=== PATIENT | female | born 1985 | race Caucasian/White ===

== ENCOUNTER 2018-08-03 21:18 | Inpatient (IN) | payer SELFPAY ==
[~2018-08-03 21:18] MED LIST: Lidocaine 1% PF 5 ML VIAL ONE; Ondansetron PF 4 MG/2 ML Vial ONE; PROPOFOL 200 MG/20 ML VIAL ONE; Rocuronium Bromide 10 MG/ML (10ML VIAL) ONE; Succinylcholine Chloride 20 MG/ML 10 ml SYRINGE FS ONE; ePHEDrine 50 MG/ML VIAL ONE
[2018-08-03] MEDS ORDERED: Acetaminophen 325 MG TAB ONE (21:37)
[2018-08-03] MEDS ORDERED: Clindamycin/D5W 600 mg/50 ml Premix Bag ONE (22:02)
[2018-08-03] MEDS ORDERED: Morphine 4 MG/ML VIAL ONE (22:02)
[2018-08-03] MEDS ORDERED: metroNIDAZOLE 500 MG/100 ML BAG ONE (22:08)
[2018-08-03] MEDS ORDERED: Ampicillin/Sulbactam 3 GM in Sodium Chloride 0.9% 100 ML IVPB SCH ×2 (22:15→22:30)
[2018-08-03] MEDS ORDERED: Fentanyl 100 MCG/2 ML VIAL ONE (22:38)
[2018-08-03] MEDS ORDERED: IBUPROFEN IVPB SCH (22:45)
[2018-08-03] MEDS ORDERED: SODIUM CHLORIDE 0.9% IVPB SCH (22:45)
[2018-08-03] MEDS ORDERED: Bupivacaine HCl 0.5%/Epinephrine 1:200,000/PF 30 ml Vial ONE (22:49)
--- NOTE | 2018-08-03 23:12 | HP ---
TIME OF ADMISSION: 2200 hours. REASON FOR ADMISSION: Right vulvar abscess with poorly controlled diabetes. HISTORY OF PRESENT ILLNESS: Ms. Lira is a 33-year-old, G0 (presumed), who first presented to the [place] [facility] on 08/01, complaining of pain on the right vulva. She was seen and felt to have cellulitis without michael abscess and discharged home on Bactrim DS. The patient re-presented today complaining of some spontaneous drainage, increasing erythema and increasing pain. She denies . No test was performed at this time. 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 The patient denies STD history. MEDICAL HISTORY: Positive for diabetes, poorly controlled. The patient reports that she has been put on metformin in the past, however, she lost insurance and was not filling the prescription because it was 30 dollars. She also has morbid obesity. SURGICAL HISTORY: Tonsils. ALLERGIES: DENIES. MEDICATIONS: None. SOCIAL HISTORY: Former drug user, using marijuana in the past. Smokes one pack per week of cigarettes. Denies alcohol use or IV drug abuse. FAMILY HISTORY: Positive for diabetes. REVIEW OF SYSTEMS: Please see the history of present illness. Otherwise, complete review of systems is noncontributory. PHYSICAL EXAMINATION: GENERAL: White female. VITAL SIGNS: Blood pressure 118/70, pulse 98, respirations 18, temperature 101.5. HEENT: Within normal limits. LUNGS: Clear to auscultation bilaterally. HEART: Regular rate and rhythm. ABDOMEN: Soft and nontender without rebound or guarding. VULVA: The patient has somewhat spontaneously draining boil on the right labia majora. She has surrounding erythema and induration with plus-minus fluctuance throughout, is very tender on exam and extends down onto her right thigh and buttock. No foul smell is noted. No crepitus is noted. Rest of pelvic exam is deferred. LABORATORY DATA: White count of 16.4, 83% neutrophils, hematocrit of 42%, normal platelets. Sodium of 130, blood sugar of 368, creatinine of 0.8, potassium of 4.1. Urinalysis in [place] revealed 4+ glucose, 4+ ketones, trace protein, otherwise unremarkable. IMPRESSION: Right vulvar abscess with associated cellulitis. Cannot rule out necrotizing fasciitis without exploration. PLAN: Admission with Unasyn, vancomycin, and Flagyl IV. N.p.o. To OR for I and D. Consult Internal Medicine hospitalist for management of diabetes. Job ID: [id number]
[2018-08-03 23:30] LABS: BHCG - Serum Negative (NEGATIVE); Pregs Control Background? CLEAR/WHITE (CLR/WHITE); Pregs Control Bar Appear? YES (CONTROL BAR)
[2018-08-04] MEDS ORDERED: fentaNYL Citrate/PF 2,000 MCG in Sodium Chloride 0.9% 60 ML IV PRN (00:41)
[2018-08-04] MEDS ORDERED: Ondansetron HCl/PF 4 MG/2 ML Vial IVP PRN (00:41)
[2018-08-04] MEDS ORDERED: diphenhydrAMINE 25 MG CAP PO PRN ×2 (00:41→12:39)
[2018-08-04] MEDS ORDERED: Promethazine HCl 25 MG/ML VIAL IM PRN ×3 (00:41→12:39)
[2018-08-04] MEDS ORDERED: diphenhydrAMINE 50 MG/ML VIAL IVP PRN (00:41)
[2018-08-04] MEDS ORDERED: Naloxone HCl 0.4 mg/ml Vial IV PRN (00:41)
[2018-08-04] MEDS ORDERED: Ondansetron PF 4 MG/2 ML Vial IVP PRN (00:41)
[2018-08-04] MEDS ORDERED: Promethazine HCl 25 MG/ML VIAL SLOW IVP PRN (00:41)
[2018-08-04] MEDS ORDERED: diphenhydrAMINE 50 MG/ML VIAL IM PRN (00:41)
[2018-08-04] MEDS ORDERED: Zolpidem Tartrate 5 MG TAB PO PRN ×2 (00:41→12:39)
[2018-08-04] MEDS ORDERED: Communication Order-Pharmacy FS SCH (00:45)
[2018-08-04] MEDS ORDERED: Fentanyl 100 MCG/2 ML VIAL ONE (01:05)
[2018-08-04] MEDS ORDERED: HYDROcodone/Acetaminophen 7.5/325 mg Tablet PO PRN ×2 (02:03)
[2018-08-04] MEDS ORDERED: Dextrose 5% in Water 1,000 ML IV PRN (02:03)
[2018-08-04] MEDS ORDERED: Dextrose 50% Abboject 50 ML SYRINGE SLOW IVP PRN ×2 (02:03→02:56)
[2018-08-04] MEDS ORDERED: Bisacodyl 5 MG TAB PO PRN (02:03)
[2018-08-04] MEDS: Sodium Chloride 0.9% 1,000 ML IV SCH ×3 (02:45→19:28)
[2018-08-04 02:55] VITALS: BMI 38.1
[2018-08-04] MEDS: Vancomycin HCl 1.75 GM in Sodium Chloride 0.9% 500 ML IVPB SCH ×3 (03:35→21:46)
[2018-08-04 05:32] LABS: ALT (SGPT) 21 U/L (8-55); AST (SGOT) 14 U/L (5-34); Albumin 3.1 g/dL (3.5-5.0); Alkaline Phosphatase 52 U/L (40-150); Anion Gap 14 mmol/L (10-20); BUN (Urea Nitrogen) 11 mg/dL (7.0-18.7); Bilirubin, Total 1.1 mg/dL (0.2-1.2); Calc. Creatinine Clearance 238 mL/min (70-130); Calcium 7.8 mg/dL (7.8-10.44); Carbon Dioxide 19 mmol/L (22-29); Chloride 103 mmol/L (98-107); Estimated GFR-MDRD Greater than 90; Globulin 2.7 g/dL (2.4-3.5); Glucose 297 mg/dL (70-105); Potassium 3.5 mmol/L (3.5-5.1); Protein, Total 5.8 g/dL (6.0-8.3); Sodium 132 mmol/L (136-145)
[2018-08-04] MEDS: Ampicillin/Sulbactam 3 GM in Sodium Chloride 0.9% 100 ML IVPB SCH ×2 (06:04→13:21)
[2018-08-04] MEDS: HumaLOG 300 UNITS/3 ML VIAL SC PRN ×3 (06:15→18:53)
[2018-08-04] MEDS: metroNIDAZOLE 500 MG in Premix Bag 1 BAG IVPB SCH ×2 (06:43→15:30)
--- NOTE | 2018-08-04 07:31 | PRG ---
DATE OF SERVICE: 08/04/2018 TIME OF SERVICE: 0715. SUBJECTIVE: The patient is resting comfortably. She states her pain is significantly improved this morning. She is on a HOSPICE MASSAGE THERAPIST. OBJECTIVE: VITAL SIGNS: Temperature 98.0, pulse 88, respirations 16, blood pressure 103/68. HEENT: Within normal limits. LUNGS: Clear to auscultation bilaterally. HEART: Regular rate and rhythm. ABDOMEN: Soft and nontender. : Exam reveals perhaps slightly increased erythema beyond borders that were marked in the emergency room, but decreased fluctuation, and dry bandage with packing that was placed at approximately [address] No foul odor is noted. LABORATORY DATA: All cultures are pending. Basic met this morning reveals a sodium slightly up to 132, potassium at 3.5, and [id number] glucose of 276. [facility] Internal Medicine is following the patient for management of diabetes. IMPRESSION: Right vulvar abscess and a poorly controlled diabetic. On Unasyn, Flagyl, and vancomycin with wound care consult placed. PLAN: Follow up cultures. Continue follow clinical course. Continue antibiotics. Anticipate possible return to the OR for reexploration at 18 to 36 hours post initial I and D and debridement. Anticipate placement of wound VAC. Anticipate a wound care consultation. Job ID: [id number]
--- NOTE | 2018-08-04 07:36 | OP ---
DATE OF PROCEDURE: 08/04/2018 DATE OF OPERATION: 08/03/2018 to 08/04/2018 PREOPERATIVE DIAGNOSIS: Vulvar abscess, right vulva. POSTOPERATIVE DIAGNOSIS: Vulvar abscess with early necrotizing fasciitis of right vulva and thigh. PROCEDURES PERFORMED: Incision and drainage, excision, and extensive debridement of 8 x 8 x 6 cm abscess and necrotizing fasciitis of the deep subcu, skin, and muscle surface of the right thigh. ANESTHESIA: General endotracheal. ESTIMATED BLOOD LOSS: Approximately 100 mL intraoperatively. DRAINS: Cain to gravity. OPERATIVE FINDINGS: 1. Dark, malodorous purulent material encountered upon incision. 2. Necrotizing adipose tissue in the subcu and dermis region of the right thigh and vulva. 3. Small amount of necrotizing tissue on the surface of the groin muscles in the right thigh, removed. 4. Friable tissue throughout post debridement and Pulsavac irrigation. 5. Packed with one large Kerlix sponge. DISPOSITION: Floor on triple antibiotics with Wound Care consult and Internal Medicine consult for diabetes management. DESCRIPTION OF PROCEDURE: After obtaining appropriate informed consent, the patient was taken to the operating room, where general endotracheal anesthesia was achieved without difficulty. She was prepped and draped in usual manner. Cain catheter was placed. Area of the obvious pointing of the induration from suspected abscess was noted and approximately 4 cm skin incision was made. Immediately upon entry, dark purulent malodorous material was expressed, this was cultured for aerobe and anaerobe. The wound was washed out and became obvious that the extension of the incision would be needed. The incision was extended in approximately 1 cm intervals and totally at the end of the procedure, the aspects of the excised tissue was 8 x 8 x 6 cm. At the level of the skin and dermis, areas of necrosis were identified and excised, this was carried throughout and was also noted to be at the level of the surface of the muscle of the thigh. No involvement of great vessels was noted. Over approximately 45-50 minute period, the extensive debridement was carried out with meticulous care taken to make sure that all necrotic tissue was removed. Wound VAC irrigation was carried out and reinspection revealed good removal of all tissue. All areas and margins of the incision, drainage and excision area were probed and not noted to have any crepitus, loss of tissue resistance, and malodorous nature of the wound was absent. A moistened Kerlix sponge was packed in its entirety into the defect and an ABD pad applied. The patient was taken to recovery room. She will receive a CORE STACKER of Wound Care consult in the morning. We will continue Unasyn, Flagyl, and vancomycin. May consider re-exploration and inspection by OB hospitalist in 18-36 hours. We will leave Cain in place. We will obtain CORE STACKER for the patient. Job ID: [id number]
[2018-08-04 09:10] LABS: Pregnancy Test - Urine (BHCG) Negative (Negative); Pregu Control Background? CLEAR/WHITE (CLR/WHITE); Pregu Control Bar Appear? YES (CONTROL BAR); Specific Gravity 1.039 (1.002-1.036)
--- NOTE | 2018-08-04 09:43 | CON ---
DATE OF CONSULTATION: PRIMARY CARE PROVIDER: None, the patient used to see Dr. Baxter in the past, but has not seen her in several years. CHIEF COMPLAINT: Diabetes mellitus. HISTORY OF PRESENT ILLNESS: Ms. Lira is a pleasant 33-year-old lady, who was seen at [facility] for management of medical comorbidities including diabetes mellitus. She underwent incision and drainage, excision and extensive debridement of 8 x 8 x 6 cm abscess and necrotizing fasciitis of the deep subcutaneous, skin and muscle surface of the right thigh. She reports that she was diagnosed with diabetes mellitus several years ago. She was on metformin, but stopped taking it. She denies any chest pain or shortness of breath. She denies any fevers or chills. She denies any nausea or vomiting. She denies any diarrhea. She denies any abdominal pain. REVIEW OF SYSTEMS: All other systems were reviewed and found to be negative. PAST MEDICAL HISTORY: Diabetes mellitus type 2. PAST SURGICAL HISTORY: Tonsil surgery. ALLERGIES: NO KNOWN DRUG ALLERGIES. HOME MEDICATIONS: None. SOCIAL HISTORY: The patient used marijuana in the past. She smokes one pack of cigarettes every week. She denies alcohol use or recreational drug use. FAMILY HISTORY: Father with congestive heart failure and renal failure. PHYSICAL EXAMINATION: GENERAL: On examination, Ms. Lira is awake and alert, not in acute distress. She is obese, with a BMI of 38.2. VITAL SIGNS: Blood pressure is 116/73, pulse 80, respiratory rate 16, and oxygen saturation 100% on room air. She is afebrile. EYES: No scleral icterus, no conjunctival pallor. ENT: Moist mucosal membranes. No oropharyngeal erythema or exudates. NECK: Supple, nontender, trachea is midline. RESPIRATORY: Accessory muscles of breathing are not active. Chest wall movements are symmetric bilaterally. LUNGS: Clear to auscultation, without wheeze, rhonchi, or crepitations. CARDIOVASCULAR: S1 and S2 are heard, regular. Peripheral pulses palpable. No carotid bruit. No pericardial rub. ABDOMEN: Soft, nontender, bowel sounds heard. NEUROLOGIC: Cranial nerves 2 through 12 are intact. MUSCULOSKELETAL: Power is 5/5 in all 4 extremities. SKIN: Dressing over the surgical site, no rashes or subcutaneous nodules. LYMPHATIC: No cervical lymphadenopathy. PSYCHIATRIC: Normal mood, normal affect. The patient is oriented to person, place, and time. LABORATORY DATA: Ms. Lira's labs and investigations were reviewed. She has mild hyponatremia with a sodium of 132, normal potassium, normal creatinine, unremarkable liver profile, normal calcium, elevated hemoglobin A1c of 11, and negative serum test. ASSESSMENT AND PLAN: Ms. Lira is a pleasant 33-year-old lady, who was seen at [facility] on August 04, 2018. Her problem list includes: 1. Hyponatremia: Mild, likely asymptomatic, we will recheck sodium level tomorrow. 2. Diabetes mellitus type 2: Poorly controlled in the context of medication noncompliance. The patient will be started on insulin sliding scale for now. We will see how her sugars do and make further recommendations. 3. Hypoalbuminemia: Her albumin is low at 3.1. Recommend dietitian consult both for hypoalbuminemia and for diabetes diet teaching. Many thanks for allowing me to participate in your patient's care. Please feel free to contact me with any questions or concerns. LEVEL OF RISK: Moderate. LEVEL OF COMPLEXITY: Moderate. Job ID: [id number]
[2018-08-04] MEDS: Famotidine 20 MG TAB PO SCH ×2 (09:50→21:46)
[2018-08-04] MEDS: Nicotine 14 MG PATCH TD SCH (09:50)
[2018-08-04] MEDS ORDERED: Acetaminophen 325 MG TAB PO PRN (12:45)
[2018-08-04] MEDS ORDERED: Morphine 4 MG/ML VIAL SLOW IVP SCH (12:45)
[2018-08-04] MEDS: diphenhydrAMINE 50 MG/ML VIAL IM/IV PRN ×2 (15:32→23:59)
[2018-08-04] MEDS: Ketorolac Tromethamine 30 MG/ML VIAL IVP SCH ×2 (15:34→21:47)
--- NOTE | 2018-08-04 19:20 | CON ---
DATE OF CONSULTATION: 08/04/2018 REASON FOR CONSULTATION: Necrotizing perineal infections. HISTORY OF PRESENT ILLNESS: A 33-year-old with poorly controlled type 2 diabetes and obesity, who a few months ago had an abscess in the perineal region, which was drained in the emergency room in [place] and then a few days ago, she noticed inflammatory process in the right perivulvar region, which she tried to managed with a sitz bath without improvement. Eventually was seen in the emergency room and given Bactrim without improvement again and then she was admitted. Had a surgical debridement on August 04. The operative report was reviewed and after endotracheal anesthesia was achieved, Cain catheter was placed and then the area of induration was identified and a 4 cm incision made. Dark, purulent, malodorous material expressed. Culture submitted. There was evidence of extension of the process and the incision was extended approximately 1 cm area of necrosis was identified, extended to the muscle of the thigh. Extensive debridement carried out. She is going for revision of the wound today under anesthesia. She is still having severe pain in the area. No headaches, visual symptoms, sore throat, odynophagia, or dysphagia. No cough or sputum production. No chest pain. No dyspnea. No abdominal pain. She has a Cain catheter in place. No neurological symptoms. PAST MEDICAL HISTORY: Type 2 diabetes and obesity, abscess in perineal area a few months ago. PAST SURGICAL HISTORY: Tonsil removal. ALLERGIES: NONE. SOCIAL HISTORY: Current smoker. No alcoholic beverage use. FAMILY HISTORY: Type 2 diabetes. CURRENT MEDICATIONS: 1. Tylenol. 2. Unasyn. 3. Fentanyl. 4. Glucagon. 5. Flagyl. 6. Vancomycin. PHYSICAL EXAMINATION: VITAL SIGNS: T-max 98.6, blood pressure 129/86, pulse 83, respirations 14 to 20, and O2 saturation 99. SKIN: Remarkable for the right-sided perineal groin wound with healthy-appearing shepherd quite deep into the right groin. No erythema noted, but she has marked tenderness in the medial aspect of the right thigh. Peripheral IV access. No lymphadenopathy. HEENT: Ocular movements conjugate. Oral cavity normal. NECK: Supple. LUNGS: Symmetric clear breath sounds. HEART: S1 and S2. Regular rate. No S3 or S4. ABDOMEN: Soft, not distended or tender. No ascites. No bladder distention. EXTREMITIES: Able to move extremities with limitation imposed by inflammatory process right groin. NEUROLOGIC: Cognitive function appears to be intact. LABORATORY DATA: Sodium 132 and creatinine 0.61. Normal liver profile. Albumin 3.1. Urinalysis was not particularly remarkable. The last white cell count 16.4, hemoglobin 14, platelets 148, and 83% neutrophils. Microbiology with polymicrobial emily and Gram stain cultures are pending. No imaging studies to review. ASSESSMENT: Type 2 diabetes with necrotizing infection of right groin status post surgical debridement, which appears to have been adequate, going for revision today. DISCUSSION: Those processes are sometimes monobacterial, sometimes polymicrobial. In her case, she has a mixed aerobic and anaerobic infection and the usual pathogens include Bacteroides, fusobacterium, Enterobacteriaceae, possibility of streptococci and sometimes Staphylococcus aureus/methicillin-resistant Staphylococcus aureus. Switch her to Rocephin, which has broader coverage for gram- negative rods than Unasyn. Continue Flagyl and vancomycin. Await on the final identification of the organisms. Once there is proper debridements verified by the today's revision, then she probably will be a candidate for negative pressure dressing and eventual transition to oral antimicrobial therapy. Job ID: [id number]
[2018-08-04] MEDS: cefTRIAXone\\ROCEPHIN 1 GM in Sodium Chloride 0.9% 100 ML IVPB SCH (19:28)
[2018-08-04] MEDS: fentaNYL Citrate/PF 2,000 MCG in Sodium Chloride 0.9% 60 ML IV PRN (21:46)
[2018-08-05] MEDS: metroNIDAZOLE 500 MG in Premix Bag 1 BAG IVPB SCH ×4 (00:03→21:32)
[2018-08-05] MEDS: Ketorolac Tromethamine 30 MG/ML VIAL IVP SCH ×3 (05:53→21:31)
[2018-08-05] MEDS: Sodium Chloride 0.9% 1,000 ML IV SCH ×3 (05:53→19:27)
[2018-08-05] MEDS: HumaLOG 300 UNITS/3 ML VIAL SC PRN ×3 (05:54→21:32)
[2018-08-05] MEDS: Ondansetron PF 4 MG/2 ML Vial IVP PRN ×2 (06:06→15:03)
[2018-08-05 06:49] LABS: #Eosinphils 0.1 thou/uL (0.0-0.7); #Lymphocytes 0.9 thou/uL (1.20-3.40); #Monocytes 0.5 thou/uL (0.11-0.59); #Neutrophils 5.6 thou/uL (1.40-6.50); %Basophils 0.3 % (0.0-1.0); %Eosinophils 1.4 % (0.0-10.0); %Lymphocytes 12.8 % (21.0-51.0); %Monocytes 7.4 % (0.0-10.0); %Neutrophils 78.1 % (42.0-75.0); Hemoglobin 12.3 g/dL (12.0-16.0); Mean Corpuscular Hemoglobin 31.2 pg (27.0-31.0); Mean Corpuscular Volume 91.8 fL (78.0-98.0); Mean Platelet Volume 7.7 fL (7.4-10.4); Platelet Count 130 thou/uL (130-400); RBC Distribution Width 10.9 % (11.5-14.5); Red Blood Cell (RBC) Count 3.95 mill/uL (4.20-5.40); White Blood Cell (WBC) Count 7.1 thou/uL (4.8-10.8)
--- NOTE | 2018-08-05 07:02 | PDOC.EVN ---
Event Note - Event Note Event Note: POD1, HD #3 S: Nauseous this am, very thirsty, pain ok with fentanyl MANAGER INVESTMENT O: VSSAF NAD RRR CTAB S/nt/obese Ext: Right thigh with exquisitely tender erythema extending below the level of the demarkated line (this line was drawn upon admission in ER) Gen: Right labial wound with packing in place. Labs: pending A) 33yo with Necrotizing infection of right vulva/thigh and uncontrolled T2DM s/ p wound debridement on 08/04 P)NPO for OR today for repeat debridement and wound vac placement, consent signed s/p ID consult- polymicrobial, on rocephin, flagyl and vancomycin, cultures pending T2DM- f/b sound on mild SSI, will need improved control and titration of daily meds once eating Pain- cont fentanyl and toradol until postop Plan of care discussed with pt and all questions answered.
[2018-08-05 07:05] LABS: Anion Gap 12 mmol/L (10-20); BUN (Urea Nitrogen) 7 mg/dL (7.0-18.7); Calc. Creatinine Clearance 255 mL/min (70-130); Calcium 8.1 mg/dL (7.8-10.44); Carbon Dioxide 22 mmol/L (22-29); Chloride 104 mmol/L (98-107); Estimated GFR-MDRD Greater than 90; Glucose 254 mg/dL (70-105); Potassium 3.6 mmol/L (3.5-5.1); Sodium 134 mmol/L (136-145)
[2018-08-05] MEDS: cefTRIAXone\\ROCEPHIN 1 GM in Sodium Chloride 0.9% 100 ML IVPB SCH (07:26)
[2018-08-05] MEDS ORDERED: Ketorolac Tromethamine 30 MG/ML VIAL ONE (07:50)
[2018-08-05] MEDS ORDERED: Midazolam HCl 2 mg/2 ml Vial ONE (07:51)
[2018-08-05] MEDS ORDERED: Promethazine HCl 25 MG/ML VIAL ONE (08:06)
[2018-08-05] MEDS ORDERED: Fentanyl 100 MCG/2 ML VIAL ONE (08:06)
[2018-08-05] MEDS ORDERED: HYDROmorphone 2 MG/ML VIAL ONE (08:06)
[2018-08-05] MEDS: Famotidine 20 MG TAB PO SCH ×2 (09:00→21:32)
[2018-08-05] MEDS ORDERED: Ondansetron HCl/PF 4 MG/2 ML Vial IVP PRN (10:09)
[2018-08-05] MEDS ORDERED: Promethazine HCl 25 MG/ML VIAL IM PRN (10:09)
[2018-08-05] MEDS ORDERED: PACU-Morphine 4MG/ML VIAL SLOW IVP PRN (10:09)
[2018-08-05] MEDS ORDERED: HYDROmorphone 2 MG/ML VIAL SLOW IVP PRN (10:09)
[2018-08-05] MEDS ORDERED: Promethazine HCl 25 MG/ML VIAL SLOW IVP PRN (10:09)
[2018-08-05] MEDS: Vancomycin HCl 1.75 GM in Sodium Chloride 0.9% 500 ML IVPB SCH ×2 (11:01→21:30)
[2018-08-05] MEDS: Insulin Glargine 10 UNITS in Pre-Filled Syringe 1 EACH SC SCH ×2 (11:17→21:31)
[2018-08-05] MEDS: Nicotine 14 MG PATCH TD SCH (11:17)
[2018-08-05] MEDS: fentaNYL Citrate/PF 2,000 MCG in Sodium Chloride 0.9% 60 ML IV PRN (11:33)
--- NOTE | 2018-08-05 13:24 | PDOC.PN ---
- Subjective Encounter Start Date: 08/05/18 Encounter Start Time: 12:00 Subjective: just had debridement per staff, is a bit drowsy -: awakens easily, no pain - Objective MAR Reviewed: Yes Vital Signs & Weight: Vital Signs (12 hours) Temp Pulse Resp BP Pulse Ox 08/05/18 12:42 76 99/57 L 97 08/05/18 12:11 81 107/52 L 96 08/05/18 11:40 72 18 105/71 97 08/05/18 11:04 78 114/75 96 08/05/18 10:45 98.1 F 80 16 104/70 92 L 08/05/18 04:00 98.8 F 84 16 102/68 98 Weight Admit Weight 251 lb Weight 251 lb I&O: 08/04/18 08/05/18 08/06/18 06:59 06:59 06:59 Intake Total 1080 1980 Output Total 1999 1650 1100 Balance -920 -1650 880 Result Diagrams: 08/05/18 06:17 08/05/18 06:17 Additional Labs: Accuchecks 08/05/18 08/05/18 08/04/18 11:15 05:54 23:36 POC Glucose 236 H 232 H 223 H 08/04/18 15:20 POC Glucose 220 H Phys Exam - Physical Examination HEENT: PERRLA, sclera anicteric Neck: no JVD, supple Respiratory: no wheezing, no rales Cardiovascular: RRR, no significant murmur Gastrointestinal: soft, no distention, positive bowel sounds has wound vac to right groin ulcer Musculoskeletal: no edema, pulses present Neurological: non-focal, moves all 4 limbs Dx/Plan (1) Necrotizing fasciitis Code(s): M72.6 - NECROTIZING FASCIITIS Status: Acute Comment: of right groin , s/p debridement x2 (2) DM type 2 (diabetes mellitus, type 2) Status: Chronic 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 Review of Systems - Medications/Allergies Allergies/Adverse Reactions: Allergies Allergy/AdvReac Type Severity Reaction Status Date / Time No Known Drug Allergies Allergy Verified 08/04/18 02:50 Medications: Current Medications Acetaminophen (Tylenol) 650 mg PO Q6H PRN PRN Reason: Headache/Fever or Pain Stop: 08/07/18 12:46 Bisacodyl (Dulcolax) 10 mg PO DAILYPRN PRN PRN Reason: Constipation Dextrose/Water (Dextrose 50%) 25 gm SLOW IVP PRN PRN PRN Reason: Hypoglycemia Diphenhydramine HCl (Benadryl) 25 mg IM/IV Q3H PRN PRN Reason: Itching Last Admin: 08/04/18 23:59 Dose: 25 mg Diphenhydramine HCl (Benadryl) 25 mg PO Q3H PRN PRN Reason: Itching Famotidine (Pepcid) 20 mg PO BID [facility] Last Admin: 08/05/18 09:00 Dose: Not Given Glucagon (Glucagon) 1 mg IM PRN PRN PRN Reason: Hypoglycemia Dextrose/Water (D5w) 1,000 mls @ 0 mls/hr IV .Q0M PRN PRN Reason: Hypoglycemia Metronidazole 500 mg/ Device 100 mls @ 100 mls/hr IVPB Q8HR [facility] Last Admin: 08/05/18 05:52 Dose: 100 mls Sodium Chloride (Normal Saline 0.9%) 1,000 mls @ 125 mls/hr IV .Q8H [facility] Last Admin: 08/05/18 11:18 Dose: Not Given Fentanyl Citrate 2,000 mcg/ (Sodium Chloride) 100 mls @ 0 mls/hr IV INF PRN PRN Reason: Pain Last Admin: 08/05/18 11:33 Dose: 100 mls Ceftriaxone Sodium 1 gm/ (Sodium Chloride) 100 mls @ 200 mls/hr IVPB Q24HR [facility] Last Admin: 08/05/18 07:26 Dose: 100 mls Vancomycin HCl 1.75 gm/ Sodium (Chloride) 500 mls @ 250 mls/hr IVPB 0900,2100 [facility] Last Admin: 08/05/18 11:01 Dose: 500 mls Insulin Glargine 10 units/ (Miscellaneous Medication) 0.1 mls @ 0 mls/hr SC BID [facility] Last Admin: 08/05/18 11:17 Dose: Not Given Insulin Human Lispro (Humalog) 0 units SC .MILD SLIDING SCALE PRN PRN Reason: Mild Correctional Scale Last Admin: 08/05/18 11:42 Dose: 3 unit Ketorolac Tromethamine (Toradol) 30 mg IVP Q8HR [facility] Stop: 08/07/18 14:01 Last Admin: 08/05/18 05:53 Dose: 30 mg Morphine Sulfate (Morphine) 4 mg SLOW IVP ASDIR [facility] Nicotine (Nicoderm Patch) 14 mg TD Q24HR [facility] Last Admin: 08/05/18 11:17 Dose: Not Given Ondansetron HCl (Zofran Odt) 4 mg PO Q6H PRN PRN Reason: Nausea/Vomiting Ondansetron HCl (Zofran) 4 mg IVP Q6H PRN PRN Reason: Nausea/Vomiting Last Admin: 08/05/18 06:06 Dose: 4 mg Promethazine HCl (Phenergan) 12.5 mg IM Q4H PRN PRN Reason: Nausea/Vomiting Zolpidem Tartrate (Ambien) 5 mg PO HSPRN PRN PRN Reason: Insomnia
[2018-08-05] MEDS ORDERED: ePHEDrine 50 MG/ML VIAL ONE (13:45)
[2018-08-05] MEDS ORDERED: Rocuronium Bromide 10 MG/ML (10ML VIAL) ONE (13:45)
[2018-08-05] MEDS ORDERED: Ondansetron PF 4 MG/2 ML Vial ONE (13:45)
[2018-08-05] MEDS ORDERED: Lidocaine 1% PF 5 ML VIAL ONE (13:45)
[2018-08-05] MEDS ORDERED: Glycopyrrolate 0.2 MG/ML 5 ML SYRINGE ONE (13:45)
[2018-08-05] MEDS ORDERED: PROPOFOL 200 MG/20 ML VIAL ONE (13:45)
--- NOTE | 2018-08-05 13:57 | OP ---
DATE OF PROCEDURE: 08/05/2018 PREOPERATIVE DIAGNOSES: Necrotizing fasciitis of the right vulva and thigh status post incision and drainage with debridement. POSTOPERATIVE DIAGNOSES: Necrotizing fasciitis of the right vulva and thigh status post incision and drainage with debridement. PROCEDURES PERFORMED: Exam under anesthesia with wound debridement and washout with wound VAC placement. ANESTHESIA: General endotracheal. COMPLICATIONS: None. ESTIMATED BLOOD LOSS: 10 mL intraoperatively. DRAINS: Cain to gravity and wound VAC. OPERATIVE FINDINGS: Approximately 8 x 8 x 6 cm defect in the right labia and thigh to the muscle surface with mostly healthy tissue, but several areas of unhealthy and friable tissue throughout. DESCRIPTION OF PROCEDURE: Informed consent was obtained and the patient was taken to the operating room, where general anesthesia was obtained without difficulty. She was prepared and draped in the normal sterile fashion in the dorsal lithotomy position with [place] leg holders. The packing was removed and the findings were noted above. There were several areas of unhealthy appearing tissue, which were sharply dissected out. The skin edge in the inferior portion was also abnormal in color and was removed. The wound was copiously irrigated then reexamined. All margins and areas within the area of excision were probed and there was no crepitus, loss of tissue resistance, abnormal drainage, or other abnormalities noted. The Wound Care team was present to place a wound VAC at the time of surgery. The margins of her erythema were also remarked. The Cain was replaced and the patient was taken to recovery room in stable condition. 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 Job ID: [id number] [facility]
[2018-08-06] MEDS: fentaNYL Citrate/PF 2,000 MCG in Sodium Chloride 0.9% 60 ML IV PRN (01:09)
[2018-08-06] MEDS: metroNIDAZOLE 500 MG in Premix Bag 1 BAG IVPB SCH ×2 (06:09→13:15)
[2018-08-06] MEDS: Ketorolac Tromethamine 30 MG/ML VIAL IVP SCH ×3 (06:09→21:21)
[2018-08-06] MEDS: HumaLOG 300 UNITS/3 ML VIAL SC PRN ×3 (06:11→18:31)
[2018-08-06] MEDS: Sodium Chloride 0.9% 1,000 ML IV SCH ×2 (06:49→13:16)
[2018-08-06] MEDS ORDERED: cefTRIAXone\\ROCEPHIN 1 GM in Sodium Chloride 0.9% 100 ML IVPB SCH (08:00)
[2018-08-06] MEDS: Famotidine 20 MG TAB PO SCH ×2 (08:25→21:20)
[2018-08-06] MEDS: Insulin Glargine 10 UNITS in Pre-Filled Syringe 1 EACH SC SCH (08:25)
[2018-08-06] MEDS: Nicotine 14 MG PATCH TD SCH (08:29)
[2018-08-06] MEDS: Vancomycin HCl 1.75 GM in Sodium Chloride 0.9% 500 ML IVPB SCH (08:52)
--- NOTE | 2018-08-06 09:06 | PDOC.EVN ---
Event Note - Event Note Event Note: Received report from Dr. Pedraza this AM. 33 yo LAF with DM and necrotizing fasciatis. S/p debriedment on 08/04 and again on 08/05. Currently on Rocephin, Vancomycin and Flagyl by Dr. Sanchez. Glucose mgmt by Ammy, glucose this AM is 205. PEx; 119/82, 80, T= 98.8. Wound vac over wound in groin. Area of cellulitis extends past marked area from [address] Ocasio with Gen. Surgery re; need for further surgical mgmt.
--- NOTE | 2018-08-06 13:24 | PDOC.PN ---
- Subjective Encounter Start Date: 08/06/18 Encounter Start Time: 08:20 Subjective: has pain over right thigh -: overall feels better - Objective MAR Reviewed: Yes Vital Signs & Weight: Vital Signs (12 hours) Temp Pulse Resp BP Pulse Ox 08/06/18 08:07 98.8 F 80 16 119/82 08/06/18 08:00 97 08/06/18 04:00 98.9 F 91 18 122/76 98 Weight Admit Weight 251 lb Weight 251 lb I&O: 08/05/18 08/06/18 08/07/18 06:59 06:59 06:59 Intake Total 1980 Output Total 1650 1100 Balance -1650 880 Result Diagrams: 08/05/18 06:17 08/05/18 06:17 Additional Labs: Accuchecks 08/06/18 08/06/18 08/05/18 11:11 06:07 21:08 POC Glucose 237 H 205 H 226 H Phys Exam - Physical Examination HEENT: PERRLA, moist MMs Neck: no JVD, supple Respiratory: no wheezing, no rales Cardiovascular: RRR, no significant murmur Gastrointestinal: soft, non-tender, positive bowel sounds groin wound in vac Musculoskeletal: pulses present Neurological: non-focal, moves all 4 limbs Psychiatric: normal affect, A&O x 3 Dx/Plan (1) Necrotizing fasciitis Code(s): M72.6 - NECROTIZING FASCIITIS Status: Acute Comment: of right groin , s/p debridement x2 (2) DM type 2 (diabetes mellitus, type 2) Status: Chronic Qualifiers: Diabetes mellitus [facility] insulin use: without termination clerk use Diabetes mellitus complication status: with other specified complication Qualified Code (s): E11.69 - Type 2 diabetes mellitus with other specified complication (3) Obesity (BMI 30-39.9) Code(s): E66.9 - OBESITY, UNSPECIFIED Status: Chronic - Plan on lantus bid, will slightly increase pm lantus, humalog coverage -: is not eating much, hesitant to increase dose of lantus, in addition to pat -: -ient going to OR almost daily for debridement and being npo in am -: on ceftriaxone, vanc and flagyl, fentanyl mail inserter -: hemostable, needs to ambulate in hallway * . Review of Systems - Medications/Allergies Allergies/Adverse Reactions: Allergies Allergy/AdvReac Type Severity Reaction Status Date / Time No Known Drug Allergies Allergy Verified 08/04/18 02:50 Medications: Current Medications Acetaminophen (Tylenol) 650 mg PO Q6H PRN PRN Reason: Headache/Fever or Pain Stop: 08/07/18 12:46 Last Admin: 08/06/18 01:09 Dose: 650 mg Bisacodyl (Dulcolax) 10 mg PO DAILYPRN PRN PRN Reason: Constipation Dextrose/Water (Dextrose 50%) 25 gm SLOW IVP PRN PRN PRN Reason: Hypoglycemia Diphenhydramine HCl (Benadryl) 25 mg IM/IV Q3H PRN PRN Reason: Itching Last Admin: 08/04/18 23:59 Dose: 25 mg Diphenhydramine HCl (Benadryl) 25 mg PO Q3H PRN PRN Reason: Itching Famotidine (Pepcid) 20 mg PO BID [facility] Last Admin: 08/06/18 08:25 Dose: 20 mg Glucagon (Glucagon) 1 mg IM PRN PRN PRN Reason: Hypoglycemia Dextrose/Water (D5w) 1,000 mls @ 0 mls/hr IV .Q0M PRN PRN Reason: Hypoglycemia Metronidazole 500 mg/ Device 100 mls @ 100 mls/hr IVPB Q8HR [facility] Last Admin: 08/06/18 13:15 Dose: 100 mls Sodium Chloride (Normal Saline 0.9%) 1,000 mls @ 125 mls/hr IV .Q8H [facility] Last Admin: 08/06/18 13:16 Dose: 1,000 mls Fentanyl Citrate 2,000 mcg/ (Sodium Chloride) 100 mls @ 0 mls/hr IV INF PRN PRN Reason: Pain Last Admin: 08/06/18 01:09 Dose: 100 mls Vancomycin HCl 1.75 gm/ Sodium (Chloride) 500 mls @ 250 mls/hr IVPB 0900,2100 [facility] Last Admin: 08/06/18 08:52 Dose: 500 mls Insulin Glargine 10 units/ (Miscellaneous Medication) 0.1 mls @ 0 mls/hr SC BID [facility] Last Admin: 08/06/18 08:25 Dose: 0.1 mls Ceftriaxone Sodium 1 gm/ (Sodium Chloride) 100 mls @ 200 mls/hr IVPB 0800 [facility] Last Admin: 08/06/18 08:24 Dose: 100 mls Insulin Human Lispro (Humalog) 0 units SC .MILD SLIDING SCALE PRN PRN Reason: Mild Correctional Scale Last Admin: 08/06/18 06:11 Dose: 3 unit Insulin Human Lispro (Humalog) 0 units SC .BEDTIME SLIDING SC PRN PRN Reason: Bedtime Correctional Scale Last Admin: 08/05/18 21:32 Dose: 2 unit Ketorolac Tromethamine (Toradol) 30 mg IVP Q8HR [facility] Stop: 08/07/18 14:01 Last Admin: 08/06/18 13:16 Dose: 30 mg Morphine Sulfate (Morphine) 4 mg SLOW IVP ASDIR [facility] Nicotine (Nicoderm Patch) 14 mg TD Q24HR [facility] Last Admin: 08/06/18 08:29 Dose: Not Given Ondansetron HCl (Zofran Odt) 4 mg PO Q6H PRN PRN Reason: Nausea/Vomiting Ondansetron HCl (Zofran) 4 mg IVP Q6H PRN PRN Reason: Nausea/Vomiting Last Admin: 08/05/18 15:03 Dose: 4 mg Promethazine HCl (Phenergan) 12.5 mg IM Q4H PRN PRN Reason: Nausea/Vomiting Zolpidem Tartrate (Ambien) 5 mg PO HSPRN PRN PRN Reason: Insomnia
[2018-08-06] MEDS ORDERED: Meropenem 1 GM in Sodium Chloride 0.9% 100 ML IVPB SCH (14:00)
[2018-08-06] MEDS ORDERED: traMADol HCl 50 MG TAB PO PRN ×2 (14:03)
[2018-08-06] MEDS ORDERED: Sodium Chloride 0.9% 1,000 ML IV SCH (14:05)
[2018-08-06] MEDS: Ondansetron PF 4 MG/2 ML Vial IVP PRN (14:38)
--- NOTE | 2018-08-06 16:06 | PRG ---
DATE OF SERVICE: 08/06/2018 SUBJECTIVE: Gely Lira having acute onset of nausea and vomiting after infusion of Flagyl. Still quite a bit of pain in the perineal area. No respiratory symptoms. No abdominal pain. No diarrhea. Still has a Cain catheter. OBJECTIVE: VITAL SIGNS: Temperature normal. Other vital signs are normal. GENERAL: Awake, appears in distress from the vomiting. LUNGS: Clear. HEART: S1 and S2, regular rate. ABDOMEN: Soft, not tender. RECTAL: Perineal area markedly tender. NEUROLOGIC: Nonfocal. LABORATORY DATA: White cell count 7.1. Other findings are not changed. Cultures; group B strep, E coli. The other cultures are pending. ASSESSMENT AND DISCUSSION: Type 2 diabetes, obesity, and necrotizing infection of right perineal area. We will switch her to Merrem in view of the adverse reactions to Flagyl. Discontinue vancomycin, Rocephin, and Flagyl. Switch her to meropenem 1 g q.8. Job ID: [id number]
[2018-08-06] MEDS: MEROPENEM 1 GM/50 ML 1 GM in Premix Bag 1 BAG IVPB SCH ×2 (16:21→21:22)
--- NOTE | 2018-08-06 16:46 | CON ---
DATE OF CONSULTATION: HISTORY OF PRESENT ILLNESS: Gely Lira is a 33-year-old female, admitted to the Gynecology Service on 08/03/2018. She has undergone debridements on 08/04/2018 and 08/05/2018 for necrotizing fasciitis, right groin and vulva. It extends down towards her labia. She has wound VAC in place. Dr. Rodriguez has called me today, concerned that her cellulitis is extending since yesterday. She has been afebrile 98.8 degrees, heart rate 80, respiratory rate 16. There have been low laboratories obtained today, but she has been afebrile. Her white blood cell count yesterday was 7.1. Cultures on 08/04/2018 revealed mixed culture, mixed pathogens and final results are pending. Multiple gram-positive cocci, gram-negative rods, variable rods, gram-negative cocci bacilli noted. Dr. Sanchez is following her and currently she is on vancomycin, metronidazole, and she is also on ceftriaxone. The patient is a 38 BMI, 5 feet and 8 inches, and 251 pounds. She is diabetic, diagnosed this hospitalization, and is on a sliding scale insulin and her hemoglobin A1c was 11. ALLERGIES: NONE. MEDICATIONS: No medications taken on hospital admission. PAST MEDICAL AND SURGICAL HISTORY: Tonsillectomy. The patient has been treated for diabetes in the past, placed on metformin, but she discontinued it when she lost her insurance. Morbid obesity. She thinks this came about as result of shaving. The patient reports past history of marijuana use. She smokes a pack a week of cigarettes. Does not use alcohol or IV drugs. PHYSICAL EXAMINATION: VITAL SIGNS: Height 5 feet and 8 inches, 251 pounds 38 BMI, temperature 98.8 degrees, pulse 80, and blood pressure 119/82. HEAD, EARS, EYES, NOSE AND THROAT: Unremarkable. LUNGS: Clear to auscultation. CARDIAC: Regular rhythm without murmur or gallop. ABDOMEN: Soft and nontender. Wound VAC, right groin. Mild cellulitis, proximal thigh. No fluctuance. No crepitus. No induration. ASSESSMENT/PLAN: 1. Necrotizing fasciitis. Dr. Rodriguez has asked me to see her, concerned about her extending cellulitis, which has been marked today and slightly worse compared to yesterday, and few centimeters out. Wound Care, however, reports that the intensity is less. The wound is reported by OR personnel and wound care looked very good yesterday during debridement. I would not plan intervention today, Tuesday. Would instead keep her n.p.o. after midnight and plan intervention tomorrow. A wound VAC change under anesthesia and debridement is indicated and we will do this long with Gynecology Team. 2. Noncompliant diabetes, hemoglobin A1c 11, now on sliding scale insulin. 3. Morbid obesity. 4. Tobacco abuse. Job ID: [id number]
[2018-08-06] MEDS: Insulin Glargine 20 UNITS in Pre-Filled Syringe SC SCH (21:22)
[2018-08-07] MEDS: fentaNYL Citrate/PF 2,000 MCG in Sodium Chloride 0.9% 60 ML IV PRN ×2 (05:34→15:26)
[2018-08-07] MEDS: Ketorolac Tromethamine 30 MG/ML VIAL IVP SCH ×2 (05:34→15:08)
[2018-08-07] MEDS: MEROPENEM 1 GM/50 ML 1 GM in Premix Bag 1 BAG IVPB SCH ×3 (05:34→21:11)
[2018-08-07] MEDS: HumaLOG 300 UNITS/3 ML VIAL SC PRN ×4 (05:40→21:11)
--- NOTE | 2018-08-07 07:10 | PDOC.EVN ---
Event Note - Event Note Event Note: Resting. NPO for OR. PEx: BP+ 130/83, P=76, Remains AF; T=98.9 Erythema has extended past area marked yesterday AM. ABX changed by Dr. Sanchez yesterday, now on Meripenem. Plan: Dr. Ocasio consult yesterday greatly appreciated, he has scheduled her for wound review in OR this AM.
[2018-08-07] MEDS ORDERED: Fentanyl 100 MCG/2 ML VIAL ONE (08:21)
[2018-08-07] MEDS ORDERED: Lidocaine 2% Jelly 5 ML TUBE ONE (08:21)
[2018-08-07] MEDS ORDERED: Albuterol Sulfate HFA (OR ONLY) ONE (09:04)
[2018-08-07] MEDS ORDERED: Promethazine HCl 25 MG/ML VIAL IM PRN (09:59)
[2018-08-07] MEDS ORDERED: Ondansetron HCl/PF 4 MG/2 ML Vial IVP PRN (09:59)
[2018-08-07] MEDS ORDERED: Promethazine HCl 25 MG/ML VIAL SLOW IVP PRN (09:59)
--- NOTE | 2018-08-07 10:14 | OP ---
DATE OF PROCEDURE: 08/07/2018 PREOPERATIVE DIAGNOSES: Necrotizing fasciitis, right groin, status post 2 debridements by Gynecology. POSTOPERATIVE DIAGNOSES: Necrotizing fasciitis, right groin, status post 2 debridements by Gynecology. ANESTHESIA: General. INDICATIONS: The patient has cellulitis, right medial thigh. There was some concern that this is extending. I was asked to see her regarding evaluation of the wound. PROCEDURE PERFORMED: Examination of right groin wound under anesthesia noting healthy tissue. There was one pocket of clear fluid evacuated by blunt dissection. Otherwise, the wound looked good without any necrotic tissue. Wound Care Team applied a new wound VAC. DESCRIPTION OF PROCEDURE: The patient was taken to the operating room, underwent general anesthesia in the dorsal lithotomy position. Wound, right groin and perilabial prepared with Betadine and draped in routine fashion. Careful inspection revealed that laterally towards the thigh, there was one loculated fluid pocket. There was open, appreciated by overlying induration, but there was no purulence. The wound irrigated. Wound had otherwise looked healthy without sinus tracts, without further extension, and Wound Care Team placed the wound VAC. The patient tolerated the procedure well. Job ID: [id number]
[2018-08-07] MEDS ORDERED: Lidocaine 1% PF 5 ML VIAL ONE (10:44)
[2018-08-07] MEDS ORDERED: PROVENTIL INHALER 6.7 G (200 INHALATIONS) ONE (10:44)
[2018-08-07] MEDS ORDERED: PROPOFOL 200 MG/20 ML VIAL ONE (10:44)
[2018-08-07] MEDS ORDERED: Ondansetron PF 4 MG/2 ML Vial ONE (10:44)
[2018-08-07] MEDS ORDERED: Glycopyrrolate 0.2 MG/ML 5 ML SYRINGE ONE (10:44)
[2018-08-07] MEDS ORDERED: Dexamethasone 20 MG/5 ML VIAL ONE (10:44)
[2018-08-07] MEDS ORDERED: Rocuronium Bromide 10 MG/ML (10ML VIAL) ONE (10:44)
[2018-08-07] MEDS: Polyethylene Glycol 3350 17 GM Packet PO SCH (11:26)
[2018-08-07] MEDS: Insulin Glargine 10 UNITS in Pre-Filled Syringe SC SCH (11:26)
[2018-08-07] MEDS: Famotidine 20 MG TAB PO SCH ×2 (11:26→21:11)
[2018-08-07] MEDS: Nicotine 14 MG PATCH TD SCH (11:27)
[2018-08-07] MEDS: Acetaminophen 500 MG TAB PO PRN (11:32)
[2018-08-07] MEDS: Ondansetron PF 4 MG/2 ML Vial IVP PRN (11:35)
--- NOTE | 2018-08-07 12:43 | PDOC.PN ---
- Subjective Encounter Start Date: 08/07/18 Encounter Start Time: 12:00 Subjective: has pain, no sob - Objective MAR Reviewed: Yes Vital Signs & Weight: Vital Signs (12 hours) Temp Pulse Resp BP Pulse Ox 08/07/18 07:21 98.7 F 75 18 140/81 93 L 08/07/18 04:00 98.9 F 76 16 130/83 95 Weight Admit Weight 251 lb Weight 251 lb I&O: 08/06/18 08/07/18 08/08/18 06:59 06:59 06:59 Intake Total 1980 2605 900 Output Total 7439 502 2459 Balance 880 1830 -250 Result Diagrams: 08/05/18 06:17 08/05/18 06:17 Additional Labs: Accuchecks 08/07/18 08/07/18 08/06/18 11:33 05:40 20:41 POC Glucose 230 H 224 H 178 H 08/06/18 16:12 POC Glucose 234 H Phys Exam - Physical Examination HEENT: PERRLA, moist MMs Neck: no JVD, supple Respiratory: no wheezing, no rales Cardiovascular: RRR, no significant murmur Gastrointestinal: soft, non-tender, positive bowel sounds Musculoskeletal: pulses present right groin wound in vac Neurological: non-focal, moves all 4 limbs Dx/Plan (1) Necrotizing fasciitis Code(s): M72.6 - NECROTIZING FASCIITIS Status: Acute Comment: of right groin , s/p debridement x3 (2) DM type 2 (diabetes mellitus, type 2) Status: Chronic Qualifiers: Diabetes mellitus plastic maker insulin use: without usp use Diabetes mellitus complication status: with other specified complication Qualified Code (s): E11.69 - Type 2 diabetes mellitus with other specified complication (3) Obesity (BMI 30-39.9) Code(s): E66.9 - OBESITY, UNSPECIFIED Status: Chronic - Plan is on meropenem, fentanyl laboratory technical specialist -: wound care, wound vac -: lantus 20 hs and 10 am with humalog coverage -: to mobilize and ambulate as tolerated if ok with surg/obgyn * . Review of Systems - Medications/Allergies Allergies/Adverse Reactions: Allergies Allergy/AdvReac Type Severity Reaction Status Date / Time No Known Drug Allergies Allergy Verified 08/04/18 02:50 Medications: Current Medications Acetaminophen (Tylenol) 1,000 mg PO Q6H PRN PRN Reason: Moderate to Severe Pain (6-10) Last Admin: 08/07/18 11:32 Dose: 1,000 mg Bisacodyl (Dulcolax) 10 mg PO DAILYPRN PRN PRN Reason: Constipation Dextrose/Water (Dextrose 50%) 25 gm SLOW IVP PRN PRN PRN Reason: Hypoglycemia Diphenhydramine HCl (Benadryl) 25 mg IM/IV Q3H PRN PRN Reason: Itching Last Admin: 08/04/18 23:59 Dose: 25 mg Diphenhydramine HCl (Benadryl) 25 mg PO Q3H PRN PRN Reason: Itching Famotidine (Pepcid) 20 mg PO BID [facility] Last Admin: 08/07/18 11:26 Dose: 20 mg Fentanyl (Pacu-Sublimaze) 50 mcg SLOW IVP Q10MIN PRN PRN Reason: Moderate to Severe Pain (6-10) Stop: 08/07/18 12:59 Glucagon (Glucagon) 1 mg IM PRN PRN PRN Reason: Hypoglycemia Dextrose/Water (D5w) 1,000 mls @ 0 mls/hr IV .Q0M PRN PRN Reason: Hypoglycemia Fentanyl Citrate 2,000 mcg/ (Sodium Chloride) 100 mls @ 0 mls/hr IV INF PRN PRN Reason: Pain Last Admin: 08/07/18 05:34 Dose: 100 mls Insulin Glargine 20 units/ (Miscellaneous Medication) 0.2 mls @ 0 mls/hr SC HS [facility] Last Admin: 08/06/18 21:22 Dose: 0.2 mls Insulin Glargine 10 units/ (Miscellaneous Medication) 0.1 mls @ 0 mls/hr SC QAM [facility] Last Admin: 08/07/18 11:26 Dose: 0.1 mls Sodium Chloride (Normal Saline 0.9%) 1,000 mls @ 0 mls/hr IV .Q0M JESS Meropenem 1 gm/ Device 50 mls @ 200 mls/hr IVPB Q8HR [facility] Last Admin: 08/07/18 05:34 Dose: 50 mls Ibuprofen (Motrin) 600 mg PO Q6H PRN PRN Reason: Pain Insulin Human Lispro (Humalog) 0 units SC .MILD SLIDING SCALE PRN PRN Reason: Mild Correctional Scale Last Admin: 08/07/18 11:33 Dose: 3 unit Insulin Human Lispro (Humalog) 0 units SC .BEDTIME SLIDING SC PRN PRN Reason: Bedtime Correctional Scale Last Admin: 08/05/18 21:32 Dose: 2 unit Ketorolac Tromethamine (Toradol) 30 mg IVP Q8HR [facility] Stop: 08/07/18 14:01 Last Admin: 08/07/18 05:34 Dose: 30 mg Morphine Sulfate (Morphine) 4 mg SLOW IVP ASDIR [facility] Nicotine (Nicoderm Patch) 14 mg TD Q24HR [facility] Last Admin: 08/07/18 11:27 Dose: Not Given Ondansetron HCl (Zofran Odt) 4 mg PO Q6H PRN PRN Reason: Nausea/Vomiting Ondansetron HCl (Zofran) 4 mg IVP Q6H PRN PRN Reason: Nausea/Vomiting Last Admin: 08/07/18 11:35 Dose: 4 mg Ondansetron HCl (Pacu-Zofran) 4 mg IVP ONE PRN PRN Reason: Nausea/Vomiting Stop: 08/07/18 12:59 Polyethylene Glycol (Miralax) 17 gm PO DAILY [facility] Last Admin: 08/07/18 11:26 Dose: 17 gm Promethazine HCl (Phenergan) 12.5 mg IM Q4H PRN PRN Reason: Nausea/Vomiting Promethazine HCl (Pacu-Phenergan) 6.25 mg SLOW IVP ONE PRN PRN Reason: Nausea/Vomiting Stop: 08/07/18 12:59 Promethazine HCl (Pacu-Phenergan) 6.25 mg IM ONE PRN PRN Reason: Nausea/Vomiting Stop: 08/07/18 12:59 Tramadol HCl (Ultram) 50 mg PO Q6H PRN PRN Reason: Moderate Pain (4-6) Tramadol HCl (Ultram) 100 mg PO Q6H PRN PRN Reason: Severe Pain (7-10) Zolpidem Tartrate (Ambien) 5 mg PO HSPRN PRN PRN Reason: Insomnia
[2018-08-07] MEDS: Insulin Glargine 20 UNITS in Pre-Filled Syringe SC SCH (21:11)
[2018-08-08] MEDS: HumaLOG 300 UNITS/3 ML VIAL SC PRN ×3 (05:21→16:50)
[2018-08-08] MEDS: MEROPENEM 1 GM/50 ML 1 GM in Premix Bag 1 BAG IVPB SCH ×2 (05:21→21:48)
[2018-08-08] MEDS ORDERED: traMADol HCl 50 MG TAB PO PRN (07:38)
[2018-08-08] MEDS: Famotidine 20 MG TAB PO SCH ×2 (08:02→20:28)
[2018-08-08] MEDS: Ondansetron ODT 4 MG TAB PO PRN (08:03)
[2018-08-08] MEDS: Polyethylene Glycol 3350 17 GM Packet PO SCH (08:04)
[2018-08-08 08:27] LABS: #Eosinphils 0.2 thou/uL (0.0-0.7); #Lymphocytes 1.8 thou/uL (1.20-3.40); #Monocytes 0.4 thou/uL (0.11-0.59); #Neutrophils 3.4 thou/uL (1.40-6.50); %Basophils 0.3 % (0.0-1.0); %Eosinophils 3.6 % (0.0-10.0); %Lymphocytes 30.3 % (21.0-51.0); %Monocytes 6.9 % (0.0-10.0); %Neutrophils 58.9 % (42.0-75.0); Hemoglobin 12.6 g/dL (12.0-16.0); Mean Corpuscular HGB CONC 33.5 g/dL (32.0-36.0); Mean Corpuscular Hemoglobin 30.9 pg (27.0-31.0); Mean Corpuscular Volume 92.2 fL (78.0-98.0); Platelet Count 179 thou/uL (130-400); White Blood Cell (WBC) Count 5.8 thou/uL (4.8-10.8)
[2018-08-08 08:31] LABS: INR-International Normal Ratio 1.2; PTT 25.9 SEC (22.9-36.1); Prothrombin Time 14.8 SEC (12.0-14.7)
[2018-08-08 08:46] LABS: ALT (SGPT) 29 U/L (8-55); AST (SGOT) 14 U/L (5-34); Albumin 2.9 g/dL (3.5-5.0); Alkaline Phosphatase 60 U/L (40-150); Anion Gap 9 mmol/L (10-20); BUN (Urea Nitrogen) 10 mg/dL (7.0-18.7); Bilirubin, Total 0.4 mg/dL (0.2-1.2); Calc. Creatinine Clearance 255 mL/min (70-130); Calcium 8.2 mg/dL (7.8-10.44); Carbon Dioxide 27 mmol/L (22-29); Chloride 105 mmol/L (98-107); Estimated GFR-MDRD Greater than 90; Globulin 2.7 g/dL (2.4-3.5); Glucose 216 mg/dL (70-105); Potassium 3.4 mmol/L (3.5-5.1); Protein, Total 5.6 g/dL (6.0-8.3); Sodium 138 mmol/L (136-145)
--- NOTE | 2018-08-08 08:56 | PRG ---
DATE OF SERVICE: 08/08/2018 Gely Lira is doing well today. She is afebrile. She feels better. Her wound looks good. Cellulitis has resolved in the medial thigh. Wound VAC is in place. At this point, the patient will be discharged home on oral antibiotics. Her STUNT DRIVER can be discontinued. She can use saline lock. She can be discharged home with outpatient wound care on Tuesday and as an outpatient. There was no evidence of infection, cellulitis, or necrotic tissue at this time, and we will leave antibiotics orally per Dr. Sanchez. The patient can be discharged home, and at this point, I will see her as needed. I will see her in Wound Care if necessary. Please call if necessary. Job ID: [id number]
[2018-08-08] MEDS: Insulin Glargine 10 UNITS in Pre-Filled Syringe SC SCH (09:00)
--- NOTE | 2018-08-08 09:03 | PRG ---
DATE OF SERVICE: 08/08/2018 SUBJECTIVE: The patient is a 33-year-old female, who was admitted for a vulvar abscess and has been to the OR now 3 times for evaluation and debridement. Yesterday, Dr. Ocasio, the general surgeon evaluated her under general anesthesia and did some minor undermining, but otherwise confirmed that her tissue looks good, is healing and there is no evidence of necrotizing fasciitis. Today, the patient reports that her pain is at about 5. She hurts some when she moves, but believes that the swelling and redness has improved significantly over the last couple of days. OBJECTIVE: VITAL SIGNS: This morning, blood pressure was 138/89, temperature 98.0, pulse is 76, respiratory rate of 14, saturating 92% to 95% on room air. GENERAL: She appears to be in no acute distress. She is alert, oriented, cooperative, and pleasant to interact with. HEAD: Normocephalic and atraumatic. EXTREMITIES: Her wound is packed with wound VAC dressing. The erythema has significantly improved on her right inner thigh. LABORATORY DATA: Blood sugars have been running in the 200s over the last 24 hours. MEDICATIONS: Include fentanyl SAUSAGE CANNER and IV meropenem. ASSESSMENT AND PLAN: The patient is a 33-year-old female with insulin-dependent diabetes, uncontrolled, admitted for a vulvar abscess that is now healing well. The patient has no insurance at this time. There are efforts being made to arrange for outpatient wound care; however, transportation is being worked out at home. In an effort to set the patient for disposition to home, I have contacted Dr. Sanchez to ask for recommendations for transition to p.o. antibiotics. I have also contacted the Medicine team and informed them that we will no longer be taking her to the operating room and changing her diet to n.p.o. on a regular basis. I have asked that they assist in helping us get her blood sugars down to more normal range for wound healing. Dr. Cleveland is the oncoming physician, who will be following up with disposition plans as needed. Job ID: [id number]
[2018-08-08] MEDS: Nicotine 14 MG PATCH TD SCH (09:19)
[2018-08-08] MEDS ORDERED: ISOVUE-370 76%-LOCM 1 ML ONE (09:39)
[2018-08-08] MEDS: Ibuprofen 600 MG TAB PO PRN (12:24)
[2018-08-08] MEDS: traMADol HCl 50 MG TAB PO PRN ×3 (12:25→20:28)
[2018-08-08] MEDS ORDERED: metroNIDAZOLE 500 MG TAB PO SCH (15:00)
--- NOTE | 2018-08-08 15:07 | PDOC.PN ---
- Subjective Encounter Start Date: 08/08/18 Encounter Start Time: 12:00 Subjective: she feels a whole lot better this am -: pain is better - Objective MAR Reviewed: Yes Vital Signs & Weight: Vital Signs (12 hours) Temp Pulse Resp BP Pulse Ox 08/08/18 11:00 98.0 F 71 22 H 136/80 97 08/08/18 08:02 92 L 08/08/18 07:34 98.0 F 76 14 138/89 92 L 08/08/18 03:56 98.5 F 70 16 136/83 95 Weight Admit Weight 251 lb Weight 251 lb I&O: 08/07/18 08/08/18 08/09/18 06:59 06:59 06:59 Intake Total 2605 4160 Output Total 775 3000 Balance 1830 1160 Result Diagrams: 08/08/18 08:10 08/08/18 08:10 Additional Labs: Accuchecks 08/08/18 08/08/18 08/07/18 11:07 05:22 20:42 POC Glucose 232 H 217 H 260 H 08/07/18 08/07/18 15:35 08:35 POC Glucose 275 H 190 H Phys Exam - Physical Examination HEENT: PERRLA, moist MMs Neck: no JVD, supple Respiratory: no wheezing, no rales Cardiovascular: RRR, no significant murmur Gastrointestinal: soft, non-tender, positive bowel sounds wound vac to groin wound Musculoskeletal: pulses present Neurological: non-focal, moves all 4 limbs Psychiatric: normal affect, A&O x 3 Dx/Plan (1) Necrotizing fasciitis Code(s): M72.6 - NECROTIZING FASCIITIS Status: Acute Comment: of right groin , s/p debridement x3 (2) DM type 2 (diabetes mellitus, type 2) Status: Chronic Qualifiers: Diabetes mellitus bed bug exterminator insulin use: without bed bug exterminator use Diabetes mellitus complication status: with other specified complication Qualified Code (s): E11.69 - Type 2 diabetes mellitus with other specified complication (3) Obesity (BMI 30-39.9) Code(s): E66.9 - OBESITY, UNSPECIFIED Status: Chronic - Plan she has limited resources to buy insulin, was on metformin before but was n -: -on compliant, we will dc lantus and start metformin tid and glipizide both -: will cost a total of 8-10$ a month. -: She is on augmentin and flagyl for out pt use -: outpt wound care has been arranged, dc plan per OBgyn adv * . She needs to ambulate more prior to going home, counselled reg DVT/atelectasis etc if she remains sedentary at home. D/w in am. She needs a glucometer to check fingerstick twice daily and record x 10 days for f/u to change any meds. Hypoglycemia patient information and diabetic teaching by RN prior to discharge. Review of Systems - Medications/Allergies Allergies/Adverse Reactions: Allergies Allergy/AdvReac Type Severity Reaction Status Date / Time No Known Drug Allergies Allergy Verified 08/04/18 02:50 Medications: Current Medications Acetaminophen (Tylenol) 1,000 mg PO Q6H PRN PRN Reason: Moderate to Severe Pain (6-10) Last Admin: 08/07/18 11:32 Dose: 1,000 mg Amoxicillin/Clavulanate Potassium (Augmentin) 875 mg PO Q12HR [facility] Bisacodyl (Dulcolax) 10 mg PO DAILYPRN PRN PRN Reason: Constipation Dextrose/Water (Dextrose 50%) 25 gm SLOW IVP PRN PRN PRN Reason: Hypoglycemia Diphenhydramine HCl (Benadryl) 25 mg IM/IV Q3H PRN PRN Reason: Itching Last Admin: 08/04/18 23:59 Dose: 25 mg Diphenhydramine HCl (Benadryl) 25 mg PO Q3H PRN PRN Reason: Itching Famotidine (Pepcid) 20 mg PO BID [facility] Last Admin: 08/08/18 08:02 Dose: 20 mg Glipizide (Glucotrol) 5 mg PO DAILY-AC [facility] Glucagon (Glucagon) 1 mg IM PRN PRN PRN Reason: Hypoglycemia Dextrose/Water (D5w) 1,000 mls @ 0 mls/hr IV .Q0M PRN PRN Reason: Hypoglycemia Sodium Chloride (Normal Saline 0.9%) 1,000 mls @ 0 mls/hr IV .Q0M [facility] Ibuprofen (Motrin) 600 mg PO Q6H PRN PRN Reason: Pain Last Admin: 08/08/18 12:24 Dose: 600 mg Insulin Human Lispro (Humalog) 0 units SC .MILD SLIDING SCALE PRN PRN Reason: Mild Correctional Scale Last Admin: 08/08/18 14:42 Dose: 3 unit Insulin Human Lispro (Humalog) 0 units SC .BEDTIME SLIDING SC PRN PRN Reason: Bedtime Correctional Scale Last Admin: 08/07/18 21:11 Dose: 3 unit Metformin HCl (Glucophage) 500 mg PO TID [facility] Metronidazole (Flagyl) 500 mg PO TID [facility] Last Admin: 08/08/18 14:41 Dose: 500 mg Morphine Sulfate (Morphine) 4 mg SLOW IVP ASDIR [facility] Nicotine (Nicoderm Patch) 14 mg TD Q24HR [facility] Last Admin: 08/08/18 09:19 Dose: Not Given Ondansetron HCl (Zofran Odt) 4 mg PO Q6H PRN PRN Reason: Nausea/Vomiting Last Admin: 08/08/18 08:03 Dose: 4 mg Ondansetron HCl (Zofran) 4 mg IVP Q6H PRN PRN Reason: Nausea/Vomiting Last Admin: 08/07/18 11:35 Dose: 4 mg Polyethylene Glycol (Miralax) 17 gm PO DAILY [facility] Last Admin: 08/08/18 08:04 Dose: Not Given Promethazine HCl (Phenergan) 12.5 mg IM Q4H PRN PRN Reason: Nausea/Vomiting Tramadol HCl (Ultram) 100 mg PO Q4H PRN PRN Reason: Severe Pain (7-10) Last Admin: 08/08/18 12:25 Dose: 100 mg Tramadol HCl (Ultram) 50 mg PO Q4H PRN PRN Reason: Moderate Pain (4-6) Zolpidem Tartrate (Ambien) 5 mg PO HSPRN PRN PRN Reason: Insomnia
[2018-08-08] MEDS: Acetaminophen 500 MG TAB PO PRN (15:33)
--- NOTE | 2018-08-08 16:25 | PDOC.EVN ---
Event Note - Event Note Event Note: MARIO Chart Check Time: 1625 Med changes noted per IM. Now on metformin and glipizide. Needs glucometer to go home. Consider ASA for DVT prophylaxis over lovenox Likely discharge home tomorrow (possible)
[2018-08-08] MEDS: metFORMIN 500 MG TAB PO SCH (16:51)
--- NOTE | 2018-08-08 17:10 | PDOC.EVN ---
Event Note - Event Note Event Note: 08/08/2018, 4:45 PM Discharge Update/Held: Initial plan was to discharge today with antibiotics. However, after Dr. Sanchez evaluated the patient, he decided to restart meropenem and obtain a CT scan of the abd/pelvis. We will reevaluate the patient and follow-up with wound care. OB /TALENT MANAGEMENT MANAGER has minimal contribution at this time. Will defer primary care to wound care and Dr. Sanchez, but we will follow the CT scan results.
--- NOTE | 2018-08-08 17:46 | PRG ---
DATE OF SERVICE: 08/08/2018 SUBJECTIVE: Still having marked pain and now it appears to have extended towards the proximal medial thigh, right side. No headaches. No visual symptoms, sore throat, odynophagia, dysphagia. No chest pain. No abdominal pain. OBJECTIVE: VITAL SIGNS: With essentially normal temperature. Slight elevation of systolic blood pressure. She is not tachycardic. GENERAL: Appears in distress because of the right groin and right medial thigh pain. LUNGS: Clear. S1 and S2. Regular rate. ABDOMEN: Soft. EXTREMITIES: Marked tenderness to the right medial thigh with area of mild erythema and induration. She has a negative pressure dressing right above at the groin I and D site. LABORATORY DATA: White cell count 5.8 and hemoglobin 12.6. Sodium 138 and creatinine 0.57. We will switch her back to meropenem and order a CT of pelvis and right thigh with contrast to evaluate for possible extension of necrotizing process towards the thigh. Job ID: [id number]
--- NOTE | 2018-08-08 18:09 | CT ---
CT OF THE PELVIS WITH CONTRAST: 08/08/18 HISTORY: Necrotizing infection in the right groin. TECHNIQUE: Multiple contiguous axial images were obtained in a CT of the pelvis with contrast. Sagittal and geri nal reformats were performed. FINDINGS: A Cain catheter is seen in the urinary bladder. The reproductive organs are unremarkable. The visual ized intrapelvic structures are otherwise unremarkable. Soft tissue swelling is seen diffusely but this is more prominent in the inguinal regions. The bones are unremarkable. No focal fluid collection is seen in the soft tissues. IMPRESSION: Soft tissue swelling without focal abscess or subcutaneous air. POS: [facility]
--- NOTE | 2018-08-08 18:13 | CT ---
CT OF THE RIGHT THIGH WITH CONTRAST: 08/08/18 COMPARISON: None. HISTORY: Necrotizing infection in the right groin/thigh. TECHNIQUE: Multiple contiguous axial images were obtained in a CT of the right thigh with contrast. Sagittal and coronal reformats were performed. FINDINGS: There is a wound containing a dressing in the medial aspect of the upper thigh near the groin. There is soft tissue swelling surrounding this wound. No focal fluid collection is seen. Edema is seen in t he right thigh without subcutaneous air. The bones are unremarkable. IMPRESSION: Wound in the right thigh likely presents a previously drained infectious process. There is no evidenc e of necrotizing fasciitis on this examination. POS: [facility]
[2018-08-08] MEDS: Morphine 2 MG/ML SYRINGE SLOW IVP PRN (20:29)
[2018-08-08] MEDS ORDERED: Amoxicillin/Potassium Clav 875 MG TAB PO SCH (21:00)
[2018-08-08] MEDS ORDERED: Meropenem 1 GM in Sodium Chloride 0.9% 100 ML IVPB SCH (22:00)
[2018-08-09] MEDS: Ibuprofen 600 MG TAB PO PRN ×3 (02:16→14:38)
[2018-08-09] MEDS: Acetaminophen 500 MG TAB PO PRN ×4 (02:16→21:37)
[2018-08-09] MEDS: traMADol HCl 50 MG TAB PO PRN ×4 (02:16→21:39)
[2018-08-09] MEDS: MEROPENEM 1 GM/50 ML 1 GM in Premix Bag 1 BAG IVPB SCH ×3 (06:34→21:41)
[2018-08-09] MEDS: Ondansetron PF 4 MG/2 ML Vial IVP PRN ×2 (06:37→14:44)
[2018-08-09] MEDS: HumaLOG 300 UNITS/3 ML VIAL SC PRN (06:37)
--- NOTE | 2018-08-09 06:37 | PDOC.EVN ---
Event Note - Event Note Event Note: OBGYN HD 7 (admit 08/03) S. Still with some leg discomfort O. CT of LE and pelvis with no evidence nec or abscess Vitals stable: afebrile. One elevated BP yesterday afternoon, but non-recurrent Meds: meropenum A/P: resolving right groin abcess s/p I&D x 3 1. DM: on oral dual agents: metformin and glipizide 2. Abscess: CTs are clear...continue meropenum as per Laura 3. Wound care: has wound care follow up...was awaiting wound vac placement for home 4. Home when cleared by Dr Sanchez.
[2018-08-09] MEDS: Morphine 2 MG/ML SYRINGE SLOW IVP PRN ×3 (06:38→17:38)
[2018-08-09] MEDS ORDERED: glipiZIDE 5 MG TAB PO SCH (07:30)
[2018-08-09] MEDS: Aspirin 325 mg Enteric Coated Tablet PO SCH (08:37)
[2018-08-09] MEDS: metFORMIN 500 MG TAB PO SCH ×3 (08:37→16:46)
[2018-08-09] MEDS: Famotidine 20 MG TAB PO SCH ×2 (08:37→21:38)
[2018-08-09] MEDS: Nicotine 14 MG PATCH TD SCH (08:38)
[2018-08-09] MEDS: Polyethylene Glycol 3350 17 GM Packet PO SCH (08:38)
--- NOTE | 2018-08-09 10:58 | PRG ---
DATE OF SERVICE: 08/09/2018 Gely Lira was doing well and thought to be able to go home in last 24 hours. I have discovered that there is concern about edema in her medial left thigh. The patient is having some increased pain here. During the last operation, I did break up a loculation of clear fluid in this area, but there was no evident purulent material. The patient has had a CT scan of the pelvis that is unremarkable for any problem. On inspection, the patient does have some induration in this area, but no obvious fluctuance. Her meropenem has been continued. Since she is having increased pain in this area and since she has eaten a full breakfast, plan to change her wound VAC in the OR tomorrow under anesthesia. My office is scheduling this. We will plan to re-evaluate her wound in her medial thigh area to make sure there is no problematic infection here. Hopefully, she will be able to be discharged home later in the week on oral antibiotics. Job ID: [id number]
--- NOTE | 2018-08-09 12:12 | PDOC.PN ---
- Subjective Encounter Start Date: 08/09/18 Encounter Start Time: 11:00 Subjective: has increased pain in her medial thigh area from last night -: is nauseated, didn't eat her breakfast -: no trouble swallowing - Objective MAR Reviewed: Yes Vital Signs & Weight: Vital Signs (12 hours) Temp Pulse Resp BP Pulse Ox 08/09/18 07:50 96 08/09/18 07:36 98.3 F 61 16 152/84 H 96 08/09/18 03:25 98.0 F 61 18 135/79 95 Weight Admit Weight 251 lb Weight 251 lb I&O: 08/08/18 08/09/18 08/10/18 06:59 06:59 06:59 Intake Total 4160 1000 Output Total 3000 750 Balance 1160 250 Result Diagrams: 08/08/18 08:10 08/08/18 08:10 Additional Labs: Accuchecks 08/09/18 08/09/18 08/08/18 11:21 05:44 21:02 POC Glucose 128 H 164 H 173 H 08/08/18 15:38 POC Glucose 243 H Phys Exam - Physical Examination HEENT: PERRLA, moist MMs Neck: no JVD, supple Respiratory: no wheezing, no rales Cardiovascular: RRR, no significant murmur Gastrointestinal: soft, no distention, positive bowel sounds Musculoskeletal: pulses present, edema present mild induration over posteromed upper thigh area Neurological: non-focal, moves all 4 limbs Psychiatric: A&O x 3 Dx/Plan (1) Necrotizing fasciitis Code(s): M72.6 - NECROTIZING FASCIITIS Status: Acute Comment: of right groin , s/p debridement x3 (2) DM type 2 (diabetes mellitus, type 2) Status: Chronic Qualifiers: Diabetes mellitus long term care social worker insulin use: without long term care social worker use Diabetes mellitus complication status: with other specified complication Qualified Code (s): E11.69 - Type 2 diabetes mellitus with other specified complication (3) Obesity (BMI 30-39.9) Code(s): E66.9 - OBESITY, UNSPECIFIED Status: Chronic - Plan is going to OR in am for relook at medial thigh area -: is on meropenem -: fingerstick was getting better, but pt is not eating consistently watch for -: --hypoglycemia, is on metformin and glipizide -: hold oral dm agents if pt is npo for surgery * . Review of Systems - Medications/Allergies Allergies/Adverse Reactions: Allergies Allergy/AdvReac Type Severity Reaction Status Date / Time No Known Drug Allergies Allergy Verified 08/04/18 02:50 Medications: Current Medications Acetaminophen (Tylenol) 1,000 mg PO Q6H PRN PRN Reason: Moderate to Severe Pain (6-10) Last Admin: 08/09/18 08:38 Dose: 1,000 mg Aspirin (Ecotrin) 325 mg PO DAILY [facility] Last Admin: 08/09/18 08:37 Dose: 325 mg Bisacodyl (Dulcolax) 10 mg PO DAILYPRN PRN PRN Reason: Constipation Dextrose/Water (Dextrose 50%) 25 gm SLOW IVP PRN PRN PRN Reason: Hypoglycemia Diphenhydramine HCl (Benadryl) 25 mg IM/IV Q3H PRN PRN Reason: Itching Last Admin: 08/04/18 23:59 Dose: 25 mg Diphenhydramine HCl (Benadryl) 25 mg PO Q3H PRN PRN Reason: Itching Famotidine (Pepcid) 20 mg PO BID [facility] Last Admin: 08/09/18 08:37 Dose: 20 mg Glipizide (Glucotrol) 5 mg PO DAILY-AC [facility] Last Admin: 08/09/18 06:35 Dose: 5 mg Glucagon (Glucagon) 1 mg IM PRN PRN PRN Reason: Hypoglycemia Dextrose/Water (D5w) 1,000 mls @ 0 mls/hr IV .Q0M PRN PRN Reason: Hypoglycemia Sodium Chloride (Normal Saline 0.9%) 1,000 mls @ 0 mls/hr IV .Q0M JESS Meropenem 1 gm/ Device 50 mls @ 200 mls/hr IVPB Q8HR [facility] Last Admin: 08/09/18 06:34 Dose: 50 mls Sodium Chloride (Normal Saline 0.9%) 1,000 mls @ 100 mls/hr IV .Q10H JESS Ibuprofen (Motrin) 600 mg PO Q6H PRN PRN Reason: Pain Last Admin: 08/09/18 08:39 Dose: 600 mg Insulin Human Lispro (Humalog) 0 units SC .MILD SLIDING SCALE PRN PRN Reason: Mild Correctional Scale Last Admin: 08/09/18 06:37 Dose: 2 unit Insulin Human Lispro (Humalog) 0 units SC .BEDTIME SLIDING SC PRN PRN Reason: Bedtime Correctional Scale Last Admin: 08/07/18 21:11 Dose: 3 unit Metformin HCl (Glucophage) 500 mg PO TID-WM [facility] Last Admin: 08/09/18 12:06 Dose: 500 mg Morphine Sulfate (Morphine) 4 mg SLOW IVP ASDIR [facility] Last Admin: 08/08/18 20:29 Dose: 4 mg Morphine Sulfate (Morphine) 2 mg SLOW IVP Q4H PRN PRN Reason: Moderate to Severe Pain (4-10) Stop: 08/09/18 20:08 Last Admin: 08/09/18 06:38 Dose: 2 mg Nicotine (Nicoderm Patch) 14 mg TD Q24HR [facility] Last Admin: 08/09/18 08:38 Dose: Not Given Ondansetron HCl (Zofran Odt) 4 mg PO Q6H PRN PRN Reason: Nausea/Vomiting Last Admin: 08/08/18 08:03 Dose: 4 mg Ondansetron HCl (Zofran) 4 mg IVP Q6H PRN PRN Reason: Nausea/Vomiting Last Admin: 08/09/18 06:37 Dose: 4 mg Polyethylene Glycol (Miralax) 17 gm PO DAILY [facility] Last Admin: 08/09/18 08:38 Dose: Not Given Promethazine HCl (Phenergan) 12.5 mg IM Q4H PRN PRN Reason: Nausea/Vomiting Tramadol HCl (Ultram) 100 mg PO Q4H PRN PRN Reason: Severe Pain (7-10) Last Admin: 08/09/18 12:07 Dose: 100 mg Tramadol HCl (Ultram) 50 mg PO Q4H PRN PRN Reason: Moderate Pain (4-6) Zolpidem Tartrate (Ambien) 5 mg PO HSPRN PRN PRN Reason: Insomnia
--- NOTE | 2018-08-09 17:39 | PRG ---
DATE OF SERVICE: 08/09/2018 SUBJECTIVE: Ms. Lira is still with marked tenderness in the medial aspect of her right thigh with induration. PHYSICAL EXAMINATION: VITAL SIGNS: Stable. A little bit of elevation of systolic blood pressures. GENERAL: She appears in distress. HEENT: Ocular movements conjugate. LUNGS: Clear. HEART: S1 and S2, regular rate. ABDOMEN: Soft. EXTREMITIES: The right medial thigh is still with mild erythema and with marked induration, marked tenderness. LABORATORY DATA: Labs are not particularly remarkable. The CT showed subcutaneous swelling, but no focal fluid collection. ASSESSMENT AND DISCUSSION: Necrotizing infection, polymicrobial, right groin with still persistence of severe pain. Dr. Ocasio is going to explore the area, I believe tomorrow, to see if there are areas of necrosis that have not yet been debrided. Continue IV antimicrobials. Job ID: [id number]
[2018-08-10] MEDS: traMADol HCl 50 MG TAB PO PRN ×3 (05:21→16:34)
[2018-08-10] MEDS: Ibuprofen 600 MG TAB PO PRN ×2 (05:22→12:50)
[2018-08-10] MEDS: MEROPENEM 1 GM/50 ML 1 GM in Premix Bag 1 BAG IVPB SCH ×2 (05:22→13:47)
[2018-08-10] MEDS ORDERED: Bupivacaine HCl 0.5%/Epinephrine 1:200,000/PF 30 ml Vial ONE (06:26)
[2018-08-10] MEDS ORDERED: Lidocaine 2% PF 5 ML VIAL ONE (06:35)
[2018-08-10] MEDS ORDERED: Fentanyl 100 MCG/2 ML VIAL ONE ×4 (08:27→09:57)
[2018-08-10] MEDS ORDERED: Midazolam HCl 2 mg/2 ml Vial ONE (08:27)
--- NOTE | 2018-08-10 08:49 | PRG ---
DATE OF SERVICE: 08/10/2018 SUBJECTIVE: The patient is a 33-year-old female with B diabetes, admitted for a perivulvar abscess, on meropenem and wound VAC. Medicine Team has been managing her diabetes care. General Surgery was consulted a few days ago for concerns of worsening infection at the wound site. Yesterday, it appears that the patient was reporting worsening disease and on exam was noted to have more induration, tenderness, and redness. Plan per General Surgery's reports is a wound VAC change out under anesthesia this morning with Dr. Ocasio for further evaluation of the wound, looking for signs of worsening disease and infection. The patient reports that her pain is persistent on that side and that she has just been toughing it out. OBJECTIVE: VITAL SIGNS: This morning showed a blood pressure of 151/96, temperature of 98.6, pulse is 73, respiratory rate 18, and saturating 96% on room air. GENERAL: She appears to be in no acute distress, though the right upper leg and inner thigh was very tender to palpation in the upper regions closer to the groin and mid thigh. ASSESSMENT AND PLAN: Blood sugars in the last 24 hours have been in the 100s to 170s. Her glipizide was withheld this morning in preparation for another visit to the operating room. In the foreseeable future, the patient remained admitted to the hospital on antibiotics per Dr. Sanchez' recommendations. Hopefully, this visit to the OR will be able to identify any problems that may be present. Job ID: [id number]
[2018-08-10] MEDS ORDERED: Ondansetron HCl/PF 4 MG/2 ML Vial IVP PRN (09:27)
[2018-08-10] MEDS ORDERED: Promethazine HCl 25 MG/ML VIAL SLOW IVP PRN (09:27)
[2018-08-10] MEDS ORDERED: Promethazine HCl 25 MG/ML VIAL IM PRN (09:27)
[2018-08-10] MEDS: Sodium Chloride 0.9% 1,000 ML IV SCH ×2 (09:30→16:46)
[2018-08-10] MEDS: metFORMIN 500 MG TAB PO SCH ×3 (09:30→16:31)
[2018-08-10] MEDS: Famotidine 20 MG TAB PO SCH (09:30)
[2018-08-10] MEDS: Aspirin 325 mg Enteric Coated Tablet PO SCH (09:30)
[2018-08-10] MEDS: Nicotine 14 MG PATCH TD SCH (09:31)
[2018-08-10] MEDS: Polyethylene Glycol 3350 17 GM Packet PO SCH (09:31)
--- NOTE | 2018-08-10 09:57 | PDOC.EVN ---
Event Note - Event Note Event Note: 08/10/18 Time: [id number] D/W Dr Ocasio...patient okfor DC tp home without OR eval as there was no appreciable induration after packing was removed. She is to have wound care place vac and we will DC to home on oral DM meds, and per daryl Hooper for home augmentin and flaghyl use She is not currently in her room, may be in wound care. Plan for PM [facility]
--- NOTE | 2018-08-10 11:49 | PDOC.EVN ---
Event Note - Event Note Event Note: Discharge note 08/10/18 TOE: 11:40-11:45 3310 Patient is still sedated from her trip to the OR. No additional debridement done. All physician parties agree for discharge. Discharge dictation pending.
--- NOTE | 2018-08-10 12:22 | OP ---
DATE OF PROCEDURE: 08/10/2018 PREOPERATIVE DIAGNOSES: 1. Right groin wound. 2. Para-labial wound. 3. Thigh wound. 4. History of necrotizing fasciitis. POSTOPERATIVE DIAGNOSES: 1. Right groin wound. 2. Para-labial wound. 3. Thigh wound. 4. History of necrotizing fasciitis. 5. No abscess, no necrotic tissue, and no cellulitis. PROCEDURES PERFORMED: 1. Exam under anesthesia. 2. Wound VAC change. NOTE: The patient preoperatively was ready to be discharged a few days ago when she developed some pain, induration, cellulitis, questionable left medial thigh. CAT scan of pelvis and thigh revealed absence of any abscess. It was decided to bring her to the operating room for exam under anesthesia. Once the wound VAC was removed, the induration in left medial thigh resolved and induration appreciated is in fact the foam packing. The skin looks normal. There is no cellulitis. No evidence of infection. No necrotic tissue. No debridement was necessary. DESCRIPTION OF PROCEDURE: The patient was taken to the operating room, where under general anesthesia in frog-legged position, the right groin and thigh were prepared with Betadine and draped in routine fashion. Wound was inspected, noted to be healthy. There was no evidence of cellulitis or infection in the left medial thigh. The induration appreciated on clinical exam was the foam packing. There was no necrotic tissue. There was healthy tissue granulating and no evidence of infection. The patient can be discharged home with a home VAC. We can discontinue the Instill VAC. Follow up with Wound Care. Job ID: [id number]
[2018-08-10] MEDS: Ondansetron ODT 4 MG TAB PO PRN (12:48)
[2018-08-10] MEDS: HumaLOG 300 UNITS/3 ML VIAL SC PRN ×2 (12:50→16:31)
--- NOTE | 2018-08-10 13:45 | DIS ---
DATE OF ADMISSION: 08/03/2018 DATE OF DISCHARGE: 08/10/2018 PRINCIPAL REASON FOR ADMISSION: 1. Right vulvar abscess. 2. Poorly controlled diabetes. SERVICES CONSULTED: Includes, 1. Internal Medicine. 2. General Surgery. ADMITTING PHYSICIAN: Nicholas Stevenson MD DISCHARGE PHYSICIAN: Rodri Cleveland MD HOSPITAL COURSE: In brief, this patient was admitted on 08/03/2018 as a 33-year-old, G0, who first presented to the [facility] on 08/01. She was complaining of pain on the right vulva. She was felt to have cellulitis without michael abscess and discharged home on Bactrim DS. She presented again complaining of some spontaneous drainage. No test was performed at the time of admission per Dr. Stevenson's H and P. On her medical history, she does have a known history of diabetes that has been poorly controlled because she lost her insurance and she was not being able to fill her prescription. She was admitted by Dr. Stevenson for control of this condition. She was given Unasyn, vancomycin, and Flagyl IV. She was also considered a patient for I and D, and so it was planned to go to the OR. Internal Medicine was consulted for management of diabetes. Once again, the patient was admitted for IV antibiotics and for possible I and D in the operating room. Dr. Stevenson did proceed on 08/04/2018 to the OR with incision and drainage and extensive debridement of an 8 x 8 x 6 cm abscess with possible necrotizing fascitis of the deep subcutaneous tissue. The patient was kept on antibiotics from this time and did require other trips to the OR for continued debridement. This was a procedure done by Ivanna Pedraza MD, as well as Dr. Ocasio. Dr. Ocasio's last debridement was 08/07/2018. It is important to note that this area was the right medial thigh rather than being truly vulvar. On 08/08/2018, Dr. Sanchez ordered a pelvis and extremity CT to rule out any other extensive necrotized tissue. The pelvis and lower extremity CT were both negative for evidence of necrotizing fascitis. Dr. Sanchez did evaluate the patient and had recommended meropenem. She had been placed on meropenem throughout this course as well. I evaluated the patient both on 08/08 and then again on 08/10/2018. On 08/10/2018, the idea was that Dr. Ocasio with General Surgery was going to take the patient back for another debridement, which should be number four. However, after the patient arrived in the OR, debridement was not necessary as it was felt that most of her discomfort was due to the deep and tight packing placed into the wound. So, although she did go to the operating room, the procedure was not actually performed. After discussion with Dr. Sanchez, Dr. Ocasio, and Case Management, it was felt on 08/10/2018 that the patient was acceptable to have discharge with a home glucometer and a home wound VAC. A home wound VAC was authorized through the hospital and is being placed by Wound Care. Dr. Sanchez recommended Augmentin and Flagyl for outpatient therapy and so, this was written and sent to [facility]. We also sent her home on metformin and glipizide rather than insulin because she could not afford her insulin. She will follow up with Wound Care with multiple visits per week. She will also follow up with Dr. Ocasio. For pain, we did give her some tramadol #15 with no refills. She can inquire about further pain management issues as she continues care with the Wound Care team as we do not want to have excess sedation or excessive use of narcotics. Again, disposition is to home. Final diagnosis are as previously discussed. Job ID: [id number]
[2018-08-10] MEDS: Acetaminophen 500 MG TAB PO PRN (13:55)
[2018-08-10 15:22] VITALS: BP 128/85; TEMP 98.6
--- NOTE | 2018-08-11 10:09 | PQF ---
[employer] Winform Viewer RODRI TRAVIS [id number] CLINICAL DOCUMENTATION CLARIFICATION FORM: POST DISCHARGE Addendum to original discharge summary date: 08/10/18 Late entry note date: 08/12/18 DATE: 08/11/2018 ATTN: RODRI TRAVIS Please exercise your independent, professional judgment in responding to the clarification form. Clinical indicators are provided on the bottom of this form for your review Please check appropriate box(s) to clarify if the following diagnosis has been ruled in or ruled out: Sepsis [ ] Ruled in diagnosis [ ] Continue to treat [ ] Resolved [ x ] Ruled out diagnosis [ ] Cannot rule out diagnosis [ ] Other diagnosis __See below [ ] Unable to determine NOTE: By discharge,fever resolved. Right vulvar abscess was s/p I&D x 3 and was to continue outpatient care with wound vac. Has outpatient follow up. Diabetes under new medical regimine including two oral medications (insulin not given due to costs). For continuity of documentation, please document condition throughout progress notes and discharge summary. Thank You. CLINICAL INDICATORS - SIGNS / SYMPTOMS / LABS Fever, Sepsis- ED, 08/05- Day Trevino MD Right vulvar abscess and a poorly controlled diabetic-PN, 08/04, Nicholas Stevenson MD Vulvar abscess with early necrotizing fascititis of right vulva and thigh-OP report, 08/04-Nicholas Stevenson MD WBC: 16.4-H&P 08/04, Nicholas Stevenson MD Temp: 101.8, Pulse: 96, RR:20-ED, 08/05- Day rTevino MD RISK FACTORS Right vulvar abscess-PN, 08/04, Nicholas Stevenson MD Poorly controlled diabetes-DS, 08/10, Rodri Travis MD TREATMENTS I and D, excision and extensive debridement-OP report, 08/04, Nicholas Stevenson MD She was given Unasyn, Vancomycin and Flagyl IV-DS, 08/10, Rodri Travis MD [employer] Winform Viewer (This form is maintained as a part of the permanent medical record) 2014 [employer]. All Rights Reserved Jerod Barnhart [not provided] [not provided] MTDD
--- NOTE | 2018-08-11 10:15 | PQF ---
[employer] Specialist [employer] Reports Winform Viewer RODRI TRAVIS [id number] CLINICAL DOCUMENTATION CLARIFICATION FORM: POST DISCHARGE Addendum to original discharge summary date: 10/10/18 Late entry note date: 08/12/18 NOTE: Final Diagnosis: Right vulvar abscess and a poorly controlled diabetic-PN, 08/04, Nicholas Stevenson MD Type 2 with necrotizing infection of right groin-Consultation, 08/04, Darrick Sanchez MD Vulvar abscess with early necrotizing fascititis of right vulva and thigh-OP report, 08/04-Nicholas Stevenson MD DATE: 08/11/2018 ATTN: RODRI TRAVIS Please exercise your independent, professional judgment in responding to the clarification form. Clinical indicators are provided on the bottom of this form for your review Please check appropriate box(s): [ x ] Right vulvar Abscess due to Diabetes mellitus [ ] Right vulvar Abscess not due to Diabetes mellitus [ x ] Other diagnosis _s/p I&P [ ] Unable to determine For continuity of documentation, please document condition throughout progress notes and discharge summary. Thank You. CLINICAL INDICATORS - SIGNS / SYMPTOMS / LABS Right vulvar abscess and a poorly controlled diabetic-PN, 08/04, Nicholas Stevenson MD Type 2 with necrotizing infection of right groin-Consultation, 08/04, Darrick Sanchez MD Vulvar abscess with early necrotizing fascititis of right vulva and thigh-OP report, 08/04-Nicholas Stevenson MD Temp: 101.8, Pulse: 96, RR:20-ED, 08/05- Day Trevino MD POC glucose: 146H, 179H, 172H-LAB, 08/10 RISKS: Poorly controlled diabetes-DS, 08/10, Rodri Travis MD TREATMENT: I and D, excision and extensive debridement-OP report, 08/04, Nicholas Stevenson MD She was given Unasyn, Vancomycin and Flagyl IV-DS, 08/10, Rodri Travis MD (This form is maintained as a part of the permanent medical record) [employer] Specialist [employer] Win[employer] [id number] [id number]. All Rights Reserved Jerod Barnhart [not provided] [not provided] MTDD
== END 2018-08-10 18:09 | disposition home or self-care (01) | DRG 982 ==
LOC: ERS 21:18 → SJJU 23:44
PROVIDERS: ADMIT Obstetrics & Gynecology; ATTEND Obstetrics & Gynecology
PROC: 0KBN0ZZ Excision of Right Hip Muscle, Open Approach (ICD-10-PCS; principal; 2018-08-03)
PROC: 0HDHXZZ Extraction of Right Upper Leg Skin, External Approach (ICD-10-PCS; 2018-08-05)
PROC: 2W1NX6Z Compression of Right Upper Leg using Pressure Dressing (ICD-10-PCS; 2018-08-07)
PROC: 2W0NX6Z Change Pressure Dressing on Right Upper Leg (ICD-10-PCS; 2018-08-10)
DX: E11.628 Type 2 diabetes mellitus with other skin complications (principal); L03.115 Cellulitis of right lower limb; E87.1 Hypo-osmolality and hyponatremia; N76.4 Abscess of vulva; L02.415 Cutaneous abscess of right lower limb; E88.09 Other disorders of plasma-protein metabolism, not elsewhere classified; F17.200 Nicotine dependence, unspecified, uncomplicated; E11.9 Type 2 diabetes mellitus without complications; E66.01 Morbid (severe) obesity due to excess calories; Z68.38 Body mass index [BMI] 38.0-38.9, adult; Z79.84 Long term (current) use of oral hypoglycemic drugs; Z91.14 Patient's other noncompliance with medication regimen
CPT/HCPCS: 36415; 36416; 72193; 80048; 80053; 81025; 83036; 84703; 85025; 85610; 85730; 86850; 86900; 86901; 87070; 87205; 88304; 90471; 90732; 96365; 96375; G0009; J0295; J0670; J0696; J1100; J1170; J1200; J1815; J1885; J2001; J2185; J2250; J2270; J2405; J2550; J2704; J3010; J3370; J3490; J7050; Q0162; Q9966

== ENCOUNTER 2018-08-15 08:42 | Outpatient (CLI) | payer SELFPAY ==
[2018-08-15] MEDS ORDERED: Sodium Chloride 0.9% 15 ML NEB ONE (11:11)
[2018-08-15] MEDS ORDERED: Lidocaine 4% Topical Sol 50 ML BOT ONE (11:11)
== END 2018-08-15 08:43 | disposition home or self-care (01) ==
LOC: WCC 08:42
PROVIDERS: ATTEND Family Medicine
DX: N76.4 Abscess of vulva (principal); M72.6 Necrotizing fasciitis
CPT/HCPCS: A4218

== ENCOUNTER 2018-08-18 14:50 | Outpatient (CLI) | payer SELFPAY ==
[2018-08-18] MEDS ORDERED: Sodium Chloride 0.9% 15 ML NEB ONE (15:00)
[2018-08-18] MEDS ORDERED: Lidocaine 4% Topical Sol 50 ML BOT ONE (15:00)
== END 2018-08-18 14:51 | disposition home or self-care (01) ==
LOC: WCC 14:50
PROVIDERS: ATTEND Family Medicine
DX: T81.89XD Other complications of procedures, not elsewhere classified, subsequent encounter (principal); Z87.2 Personal history of diseases of the skin and subcutaneous tissue
CPT/HCPCS: 97605; A4218

== ENCOUNTER 2018-08-22 09:56 | Outpatient (CLI) | payer SELFPAY ==
[2018-08-22] MEDS ORDERED: Lidocaine 4% Topical Sol 50 ML BOT ONE (18:00)
[2018-08-22] MEDS ORDERED: Sodium Chloride 0.9% 15 ML NEB ONE (18:00)
== END 2018-08-22 09:57 | disposition home or self-care (01) ==
LOC: WCC 09:56
PROVIDERS: ATTEND Family Medicine
DX: T81.89XD Other complications of procedures, not elsewhere classified, subsequent encounter (principal)
CPT/HCPCS: 97605; A4218

== ENCOUNTER 2018-08-25 11:17 | Outpatient (CLI) | payer SELFPAY ==
[2018-08-25] MEDS ORDERED: Lidocaine 4% Topical Sol 50 ML BOT ONE (15:00)
[2018-08-25] MEDS ORDERED: Sodium Chloride 0.9% 15 ML NEB ONE (15:00)
== END 2018-08-25 11:18 | disposition home or self-care (01) ==
LOC: WCC 11:17
PROVIDERS: ATTEND Family Medicine
DX: T81.89XD Other complications of procedures, not elsewhere classified, subsequent encounter (principal)
CPT/HCPCS: A4218

== ENCOUNTER 2018-08-28 09:06 | Outpatient (CLI) | payer SELFPAY ==
[2018-08-28] MEDS ORDERED: Sodium Chloride 0.9% 15 ML NEB ONE (15:00)
[2018-08-28] MEDS ORDERED: Lidocaine 4% Topical Sol 50 ML BOT ONE (15:00)
== END 2018-08-28 09:07 | disposition home or self-care (01) ==
LOC: WCC 09:06
PROVIDERS: ATTEND Family Medicine
DX: T81.89XD Other complications of procedures, not elsewhere classified, subsequent encounter (principal); M72.6 Necrotizing fasciitis
CPT/HCPCS: A4218

== ENCOUNTER 2018-08-31 11:07 | Outpatient (CLI) | payer SELFPAY ==
--- NOTE | 2018-08-31 10:36 | HP ---
HISTORY OF PRESENT ILLNESS: Ms. Gely Lira is a very pleasant 33-year-old, who presents to the [facility] for evaluation of a wound of the right groin subsequent to surgery for vulvar abscess with early necrotizing fasciitis of the right vulva and thigh on 08/04/2018. On the following day, the patient underwent vulvar and thigh debridement and washout along with wound VAC placement. The patient returned to the OR on 08/07/2018 and 08/10/2018 for exam of the right groin wound under anesthesia along with a dressing change of the wound VAC. Upon discharge from [facility], the patient was referred to the Wound Center for assistance with wound VAC dressing changes. PAST MEDICAL HISTORY: Diabetes mellitus. PAST SURGICAL HISTORY: 1. Tonsillectomy. 2. Surgery for vulvar abscess with early necrotizing fasciitis of right vulva and thigh, 08/04/2018. 3. Vulvar and thigh debridement and washout/wound VAC placement, 08/05/2018. 4. Exam of right groin wound under anesthesia/wound VAC dressing change, 08/07/2018. 5. Exam of right groin wound under anesthesia/wound VAC dressing change, 08/10/2018. MEDICATIONS: 1. Glipizide. 2. Metformin. 3. Tramadol. ALLERGIES: NO KNOWN DIAGNOSED ALLERGIES. SOCIAL HISTORY: Social history significant for tobacco use of 1 pack of cigarettes every 4 days for approximately 10 years. The patient states that she stopped smoking 1 month ago. The patient denies any history of EtOH use. FAMILY HISTORY: Family history significant for diabetes mellitus. The patient's father and brother were both diagnosed with diabetes mellitus. Family history is also significant for coronary artery disease. The patient's father was diagnosed with coronary artery disease. PHYSICAL EXAMINATION: VITAL SIGNS: Temperature 97.8, pulse 89, respirations 19, and blood pressure 130/82. Accu-Chek 199. GENERAL: A 33-year-old female, lying on table in examination room, in no acute distress. HEENT: Normocephalic and atraumatic. NECK: No nuchal rigidity. CHEST: Clear to auscultation. CV: Regular rate and rhythm. ABDOMEN: Soft. EXTREMITIES: A wound of the right groin is present, which measures approximately 5.6 x 2.9 cm. Undermining is associated with the wound at the inferior aspect of the wound and is approximately 3 cm in length. Granulation tissue is present within the wound margins. No purulent drainage is associated with the wound. No erythema of the skin surrounding the wound is present. No maceration of the skin of the periwound is noted. NEUROLOGIC: Grossly nonfocal. ASSESSMENT AND PLAN: 1. Right groin wound as described above. Negative pressure therapy will be continued with dressing changes of the wound VAC here in the [facility]ound Center. I will see Ms. Lira again in 2 weeks. No antibiotics will be prescribed today based upon the appearance of the wound. 2. Diabetes mellitus. The patient's Accu-Chek in clinic today is 199. The patient has been told that for optimal wound healing, her blood glucoses should remain below 150. Job ID: [id number]
== END 2018-08-31 11:08 | disposition home or self-care (01) ==
LOC: WCC 11:07
PROVIDERS: ATTEND Family Medicine
DX: T81.89XD Other complications of procedures, not elsewhere classified, subsequent encounter (principal); E11.9 Type 2 diabetes mellitus without complications

== ENCOUNTER 2018-09-04 10:02 | Outpatient (CLI) | payer SELFPAY | END 2018-09-04 10:03 | disposition home or self-care (01) | LOC: WCC 10:02 | PROVIDERS: ATTEND Family Medicine | DX: T81.89XD Other complications of procedures, not elsewhere classified, subsequent encounter (principal) ==

== ENCOUNTER 2018-09-07 11:50 | Outpatient (CLI) | payer SELFPAY ==
[~2018-09-07 11:50] MED LIST changes: -Lidocaine 1% PF 5 ML VIAL ONE; +Lidocaine 4% Topical Sol 50 ML BOT ONE; -Ondansetron PF 4 MG/2 ML Vial ONE; -PROPOFOL 200 MG/20 ML VIAL ONE; -Rocuronium Bromide 10 MG/ML (10ML VIAL) ONE; +Sodium Chloride 0.9% 15 ML NEB ONE; -Succinylcholine Chloride 20 MG/ML 10 ml SYRINGE FS ONE; -ePHEDrine 50 MG/ML VIAL ONE
== END 2018-09-07 11:51 | disposition home or self-care (01) ==
LOC: WCC 11:50
PROVIDERS: ATTEND Family Medicine
DX: T81.89XD Other complications of procedures, not elsewhere classified, subsequent encounter (principal)
CPT/HCPCS: 97605; A4218

== ENCOUNTER 2018-09-12 09:14 | Outpatient (CLI) | payer SELFPAY ==
[2018-09-12] MEDS ORDERED: Sodium Chloride 0.9% 15 ML NEB ONE (18:00)
== END 2018-09-12 09:15 | disposition home or self-care (01) ==
LOC: WCC 09:14
PROVIDERS: ATTEND Family Medicine
DX: T81.89XD Other complications of procedures, not elsewhere classified, subsequent encounter (principal)
CPT/HCPCS: 97605; A4218

== ENCOUNTER 2019-05-10 22:31 | Emergency (ER) | payer SELFPAY ==
[~2019-05-10 22:31] MED LIST changes: +Iopamidol 370 76% 100 ML VIAL ONE; -Lidocaine 4% Topical Sol 50 ML BOT ONE; -Sodium Chloride 0.9% 15 ML NEB ONE
[2019-05-10] MEDS ORDERED: Cefepime 2 GM VIAL ONE (22:50)
[2019-05-10 23:15] LABS: #Eosinphils 0.2 thou/uL (0.0-0.7); #Lymphocytes 2.2 thou/uL (1.20-3.40); #Monocytes 0.8 thou/uL (0.11-0.59); #Neutrophils 9.4 thou/uL (1.40-6.50); %Basophils 0.2 % (0.0-1.0); %Eosinophils 1.4 % (0.0-10.0); %Lymphocytes 17.8 % (21.0-51.0); %Monocytes 6.3 % (0.0-10.0); %Neutrophils 74.3 % (42.0-75.0); Hemoglobin 15.3 g/dL (12.0-16.0); Mean Corpuscular HGB CONC 34.2 g/dL (32.0-36.0); Mean Corpuscular Hemoglobin 30.4 pg (27.0-31.0); Mean Corpuscular Volume 88.9 fL (78.0-98.0); Mean Platelet Volume 8.6 fL (7.4-10.4); Platelet Count 143 thou/uL (130-400); RBC Distribution Width 11.8 % (11.5-14.5); Red Blood Cell (RBC) Count 5.04 mill/uL (4.20-5.40); White Blood Cell (WBC) Count 12.6 thou/uL (4.8-10.8)
[2019-05-10 23:27] LABS: BHCG - Serum Negative (NEGATIVE); Pregs Control Background? CLEAR/WHITE (CLR/WHITE); Pregs Control Bar Appear? YES (CONTROL BAR)
[2019-05-10 23:42] LABS: ALT (SGPT) 45 U/L (8-55); AST (SGOT) 21 U/L (5-34); Albumin 4.5 g/dL (3.5-5.0); Alkaline Phosphatase 58 U/L (40-110); Anion Gap 13 mmol/L (10-20); BUN (Urea Nitrogen) 17 mg/dL (7.0-18.7); Bilirubin, Total 0.9 mg/dL (0.2-1.2); Calc. Creatinine Clearance 0 mL/min (70-130); Calcium 9.3 mg/dL (7.8-10.44); Carbon Dioxide 24 mmol/L (22-29); Chloride 100 mmol/L (98-107); Estimated GFR-MDRD Greater than 90; Glucose 258 mg/dL (70-105); Potassium 3.4 mmol/L (3.5-5.1); Protein, Total 7.5 g/dL (6.0-8.3); Sodium 134 mmol/L (136-145)
--- NOTE | 2019-05-11 00:11 | CT ---
CT pelvis with contrast: DATE: 05/11/2019 Time: 11:49 PM HISTORY: 34-year-old female with infection of labia. FINDINGS: There is a moderate sized region of soft tissue infiltration, consistent with edema, and swelling, in volving the subcutaneous fat of the left labia and mons pubis, with a portion extending to the right of midline of the mons. On the superficial left side there is an approximately 2.5 x 2 x 2 cm m oderately hypodense lesion with surrounding enhancing wall which probably represents a cutaneous and subcutaneous small abscess. There is no subcutaneous emphysema. No permeative or destructive osse ous lesion. Normal urinary bladder. No free fluid within pelvic cavity. No colonic sigmoid diverticulitis. IMPRESSION: 1. Evidence for cellulitis involving the dermis and subcutaneous fat of the mons pubis and left labia . 2. Small cutaneous and subcutaneous abscess versus phlegmon.
[2019-05-11] MEDS ORDERED: Lidocaine 1% w/Epinephrine 1:100K 20 ML VIAL ONE (00:34)
== END 2019-05-11 01:24 | disposition home or self-care (01) ==
LOC: ERS 22:31
DX: L02.215 Cutaneous abscess of perineum (principal); E11.9 Type 2 diabetes mellitus without complications; F90.9 Attention-deficit hyperactivity disorder, unspecified type; F17.210 Nicotine dependence, cigarettes, uncomplicated
CPT/HCPCS: 36415; 56405; 72193; 80053; 83605; 84703; 85025; 96361; 96365; J0692; Q9967

== ENCOUNTER 2019-10-05 12:14 | Emergency (ER) | payer SELFPAY ==
[2019-10-05] MEDS ORDERED: Lidocaine 1% PF 5 ML VIAL ONE (12:29)
== END 2019-10-05 13:29 | disposition home or self-care (01) ==
LOC: ERS 12:14
DX: L02.214 Cutaneous abscess of groin (principal); E11.9 Type 2 diabetes mellitus without complications; F90.9 Attention-deficit hyperactivity disorder, unspecified type; F17.210 Nicotine dependence, cigarettes, uncomplicated
CPT/HCPCS: 10060

== ENCOUNTER 2019-12-17 12:27 | Emergency (ER) | payer SELFPAY ==
[2019-12-17] MEDS ORDERED: Iopamidol-370 76% 500 ML 1 ML ONE (13:54)
[2019-12-17 15:59] LABS: #Basophils 0.1 thou/uL (0.0-0.2); #Eosinphils 0.2 thou/uL (0.0-0.7); #Lymphocytes 2.1 thou/uL (1.20-3.40); #Monocytes 0.6 thou/uL (0.11-0.59); #Neutrophils 8.1 thou/uL (1.40-6.50); %Basophils 0.6 % (0.0-1.0); %Eosinophils 1.9 % (0.0-10.0); %Lymphocytes 19.2 % (21.0-51.0); %Monocytes 5.5 % (0.0-10.0); %Neutrophils 72.9 % (42.0-75.0); Hemoglobin 15.6 g/dL (12.0-16.0); Mean Corpuscular HGB CONC 35.2 g/dL (32.0-36.0); Mean Corpuscular Volume 90.9 fL (78.0-98.0); Mean Platelet Volume 8.4 fL (7.4-10.4); Platelet Count 153 thou/uL (130-400); RBC Distribution Width 11.3 % (11.5-14.5); Red Blood Cell (RBC) Count 4.87 mill/uL (4.20-5.40); White Blood Cell (WBC) Count 11.1 thou/uL (4.8-10.8)
[2019-12-17 16:01] LABS: Bacteria/HPF None Seen HPF (None Seen); Bilirubin Negative (Negative); Blood, Urine Negative (Negative); Clarity Clear (Clear); Glucose, Urine (Dipstick) Greater than 1000 mg/dL (Negative); Ketone, Urine 20 mg/dL (Negative); Leukocyte Negative Leu/uL (Negative); Nitrite Negative (Negative); Protein, Urine (Dipstick) 30 mg/dL (Neg-Trace); Urobilinogen Normal mg/dL (Less than 2)
[2019-12-17 16:02] LABS: Pregnancy Test - Urine (BHCG) Negative (Negative); Pregu Control Background? CLEAR/WHITE (CLR/WHITE); Pregu Control Bar Appear? YES (CONTROL BAR); Specific Gravity 1.047 (1.002-1.036)
[2019-12-17 16:03] LABS: Specific Gravity, Urine 1.047 (1.002-1.036)
[2019-12-17 16:21] LABS: ALT (SGPT) 32 U/L (8-55); AST (SGOT) 15 U/L (5-34); Alkaline Phosphatase 58 U/L (40-110); Anion Gap 14 mmol/L (10-20); BUN (Urea Nitrogen) 14 mg/dL (7.0-18.7); Bilirubin, Total 0.9 mg/dL (0.2-1.2); Calc. Creatinine Clearance 0 mL/min (70-130); Calcium 9.4 mg/dL (7.8-10.44); Carbon Dioxide 27 mmol/L (22-29); Chloride 98 mmol/L (98-107); Estimated GFR-MDRD Greater than 90; Globulin 3.4 g/dL (2.4-3.5); Glucose 285 mg/dL (70-105); Potassium 4.3 mmol/L (3.5-5.1); Protein, Total 7.4 g/dL (6.0-8.3); Sodium 135 mmol/L (136-145)
--- NOTE | 2019-12-17 16:27 | CT ---
Exam: Pelvic CT with contrast HISTORY: Left labial abscess. COMPARISON: 05/10/2019 FINDINGS: Visualized intracranial pelvic structures do not demonstrate any acute abnormality. No evidence of sofía wel obstruction. Normal caliber appendix Symmetric attenuation of the psoas muscles Presacral fat is preserved Urinary bladder is decompressed. No abnormality with regards to the uterus and adnexal structures No osseous abnormalities. Symmetric hip joint spaces, SI joints. Intact sacrum and bony pelvis are no jose There is subcutaneous fat stranding and edema involving the left labia. There is no evidence of a florencio inable abscess. There is mild induration and thickening of the overlying dermis. When compared to the previous examination, the degree of inflammatory change has decreased. There is noted hypodensity in the left subdermal soft tissues is not present. IMPRESSION: Cellulitis involving the left labia without associated abscess.
[2019-12-17] MEDS ORDERED: Ketorolac Tromethamine 30 MG/ML VIAL ONE (16:28)
== END 2019-12-17 17:35 | disposition home or self-care (01) ==
LOC: ERS 12:27
DX: N76.2 Acute vulvitis (principal); E11.9 Type 2 diabetes mellitus without complications; F90.9 Attention-deficit hyperactivity disorder, unspecified type; F17.210 Nicotine dependence, cigarettes, uncomplicated; Z79.84 Long term (current) use of oral hypoglycemic drugs
CPT/HCPCS: 72193; 80053; 81003; 81015; 81025; 85025; 96374; J1885; Q9967